=== PATIENT | male | born 1955 | race Hispanic/Latino ===

== ENCOUNTER 2019-04-19 19:44 | Observation (INO) | payer BC | END 2019-04-20 19:05 | disposition home or self-care (01) | LOC: EDH 19:44 → EDHIP 04-20 00:30 → 2AH 04-20 01:58 ==

== ENCOUNTER 2019-05-14 08:49 | Day surgery (SDC) | payer BC ==
[~2019-05-14] VITALS: Ht 170.2 cm; Wt 113.4 kg
[~2019-05-14 08:49] MED LIST: ASPI-1197 PO; ATOR20TA65 PO; CARV12.511 PO; FURO20TA4 PO; GLYB2.5 PO; ISOS60TA4 PO; LISI2.5T2 PO; METF-444 PO; NITR0.4T50 SL; SODIUM CHLORIDE 0.9% 1000ML 1,000 ML IV ONE
[2019-05-14 10:42] VITALS: BP 116/73
[2019-05-14 12:20] VITALS: BP 102/66
[2019-05-14 12:25] VITALS: BP 111/63
[2019-05-14 12:30] VITALS: BP 111/66
[2019-05-14 12:35] VITALS: BP 115/68
== END 2019-05-14 12:47 | disposition home or self-care (01) ==
LOC: ENDO 08:49 → DAH 08:49 → ENDO 12:47
PROVIDERS: ATTEND Internal Medicine
DX: K57.30 Diverticulosis of large intestine without perforation or abscess without bleeding (principal); Z86.010 Personal history of colon polyps; Z83.71 Family history of colonic polyps; Z79.84 Long term (current) use of oral hypoglycemic drugs; Z79.899 Other long term (current) drug therapy; Z79.82 Long term (current) use of aspirin; I10 Essential (primary) hypertension; E78.5 Hyperlipidemia, unspecified; E11.9 Type 2 diabetes mellitus without complications; I25.810 Atherosclerosis of coronary artery bypass graft(s) without angina pectoris; Z53.8 Procedure and treatment not carried out for other reasons
CPT/HCPCS: 82948 ×2; A4215; A4221; A4222; A4223; A4606; A4663 ×2; J7030

== ENCOUNTER → 2019-05-15 | Outpatient (CLI) | payer BC ==
[~2019-05-15] MED LIST changes: -SODIUM CHLORIDE 0.9% 1000ML 1,000 ML IV ONE
== END | disposition home or self-care (01) ==
LOC: RAH 08:29
PROVIDERS: ATTEND Internal Medicine Cardiovascular Disease
DX: I08.0 Rheumatic disorders of both mitral and aortic valves (principal); I11.9 Hypertensive heart disease without heart failure; I25.5 Ischemic cardiomyopathy
CPT/HCPCS: 93306

== ENCOUNTER → 2020-12-25 | Outpatient (CLI) | payer BC ==
[~2020-12-25] MED LIST changes: -GLYB2.5 PO; +GLYB2.5T6 PO; -ISOS60TA4 PO; +ISOS60TA77 PO
== END | disposition home or self-care (01) ==
LOC: SHCH 10:20
PROVIDERS: ATTEND Internal Medicine Cardiovascular Disease
DX: I25.5 Ischemic cardiomyopathy (principal)
CPT/HCPCS: 93306; 93356

== ENCOUNTER 2021-02-08 20:35 | Emergency (ER) | payer BC ==
[~2021-02-08] VITALS: Ht 170.2 cm; Wt 105.2 kg
[2021-02-08 20:37] VITALS: BP 106/65
[2021-02-08] MEDS ORDERED: METOCLOPRAMIDE 5 MG TABLET PO SCH (23:15)
[2021-02-08] MEDS ORDERED: PROMETHAZINE HCL 25 MG/ML 1ML AMPULE IM ONE (23:30)
[2021-02-08 23:36] LABS: BASOPHILS % (AUTO) 0.3 % (0.0-5.0); EOSINOPHILS % (AUTO) 1.3 % (0.0-8.0); HEMATOCRIT 42.4 % (42-54); LYMPHOCYTES % (AUTO) 16.3 % (21.0-51.0); MEAN CORPUSCULAR HEMOGLOBIN 31.6 pg (27.0-33.0); MEAN CORPUSCULAR HGB CONC 33.7 g/dL (32.0-36.0); MEAN CORPUSCULAR VOLUME 93.6 fL (79-99); MONOCYTES % (AUTO) 6.4 % (3.0-13.0); NEUTROPHILS % (AUTO) 75.6 % (40.0-77.0); PLATELET COUNT (AUTO) 158 K/uL (130-400); RED BLOOD CELL COUNT(AUTO) 4.53 MIL/uL (4.50-6.20); RED CELL DISTRIBUTION WIDTH 13.4 % (11.0-15.5)
[2021-02-08 23:43] LABS: APPEARANCE,URINE Clear (CLEAR); BILIRUBIN,URINE Moderate (NEGATIVE); COLOR,URINE Dark Yellow (YELLOW); GLUCOSE, URINE (UA) Negative (NEGATIVE); KETONES,URINE Trace mg/dL (NEGATIVE); LEUKOCYTE ESTERASE ,URINE Trace (NEGATIVE); NITRATE,URINE Negative (NEGATIVE); OCCULT BLOOD,URINE Negative (NEGATIVE); PROTEIN,URINE POS 1+ mg/dL (NEGATIVE)
[2021-02-08 23:45] LABS: CREATININE 0.9 mg/dL (0.5-1.5)
[2021-02-08 23:54] LABS: BACTERIA,URINE Few /HPF (None Seen); MUCUS,URINE Moderate LPF (None Seen); RBC,URINE 0-1 /HPF (0-1); SQUAMOUS EPITHELIAL CELL,UR 0-2 /HPF (0-2); WBC,URINE 0-1 /HPF (0-1)
[2021-02-08 23:59] LABS: B-TYPE NATRIURETIC PEPTIDE 32 pg/mL (0-100)
[2021-02-09 00:03] VITALS: BP 106/65
[2021-02-09 00:03] LABS: ALBUMIN 3.8 g/dL (3.5-5.0); BILIRUBIN,TOTAL 1.2 mg/dL (0.2-1.0); TOTAL PROTEIN, SERUM 7.4 g/dL (6.0-8.3)
== END 2021-02-09 00:08 | disposition home or self-care (01) ==
LOC: EDH 20:35
DX: R11.10 Vomiting, unspecified (principal); I11.0 Hypertensive heart disease with heart failure; I50.9 Heart failure, unspecified; E11.9 Type 2 diabetes mellitus without complications; E78.00 Pure hypercholesterolemia, unspecified; I21.9 Acute myocardial infarction, unspecified; K21.9 Gastro-esophageal reflux disease without esophagitis; I25.10 Atherosclerotic heart disease of native coronary artery without angina pectoris; I25.2 Old myocardial infarction; Z79.82 Long term (current) use of aspirin; Z79.84 Long term (current) use of oral hypoglycemic drugs; Z95.1 Presence of aortocoronary bypass graft; Z79.899 Other long term (current) drug therapy; Z90.49 Acquired absence of other specified parts of digestive tract
CPT/HCPCS: 36415; 80053; 81001; 82550; 83690; 83874; 83880; 84484; 85025; 93005; 96372; 99284; J2550

== ENCOUNTER 2021-03-02 06:00 | Day surgery (SDC) | payer BC ==
[~2021-03-02] VITALS: Ht 170.2 cm; Wt 108.9 kg
[~2021-03-02 06:00] MED LIST changes: -GLYB2.5T6 PO; -LISI2.5T2 PO; -METF-444 PO; -NITR0.4T50 SL; +PRAS10TA9 PO; +RANO10003 PO; +SACU1TAB PO; +SEMA1PEN3 SQ
[2021-03-02] MEDS ORDERED: 0.9%NACL 1000ML 1,000 ML IV ONE (06:23)
[2021-03-02 07:09] VITALS: BP 106/64
[2021-03-02] MEDS ORDERED: PROPOFOL 10 MG/ML 20ML VIAL IV ONE (08:19)
[2021-03-02 08:35] VITALS: BP_SYST 110; BP_SYST 120; BP_DIAS 66
[2021-03-02 08:40] VITALS: BP 122/69
[2021-03-02 08:50] VITALS: BP 128/67
[2021-03-02 08:55] VITALS: BP 124/70
[2021-03-02 09:10] VITALS: BP 128/74
== END 2021-03-02 09:20 | disposition home or self-care (01) ==
LOC: ENDO 06:00 → DAH 06:00 → EDSTATUS 07:00 → ENDO 09:20
PROVIDERS: ATTEND Internal Medicine Gastroenterology
DX: Z12.11 Encounter for screening for malignant neoplasm of colon (principal); Z20.822 Contact with and (suspected) exposure to COVID-19; K63.5 Polyp of colon; K64.8 Other hemorrhoids; K57.30 Diverticulosis of large intestine without perforation or abscess without bleeding; I10 Essential (primary) hypertension; E78.5 Hyperlipidemia, unspecified; I25.810 Atherosclerosis of coronary artery bypass graft(s) without angina pectoris; E11.9 Type 2 diabetes mellitus without complications; Z90.49 Acquired absence of other specified parts of digestive tract; Z98.890 Other specified postprocedural states; Z95.5 Presence of coronary angioplasty implant and graft; Z86.010 Personal history of colon polyps; Z80.0 Family history of malignant neoplasm of digestive organs; Z83.71 Family history of colonic polyps
CPT/HCPCS: 45380; 45385; 82948 ×2; 87635; A4215; A4221; A4222; A4223; A4606; A4620; A4657 ×2; A4663; C9803; J2704; J7030

== ENCOUNTER → 2023-09-22 | Outpatient (CLI) | payer OTHER ==
[2023-09-22] MEDS: REGADENOSON 0.4 MG/5 ML PF SYG IVP ONE (15:48)
== END | disposition home or self-care (01) ==
LOC: SHCH 09-18 09:27
PROVIDERS: ATTEND Internal Medicine Cardiovascular Disease
DX: I25.119 Atherosclerotic heart disease of native coronary artery with unspecified angina pectoris (principal); R94.39 Abnormal result of other cardiovascular function study; I51.7 Cardiomegaly; Z95.1 Presence of aortocoronary bypass graft
CPT/HCPCS: 78452; 96374; 93017; J2785; A9500 ×2

== ENCOUNTER 2025-06-30 08:18 | Inpatient (IN) | payer OTHER ==
[~2025-06-30] VITALS: Ht 167.6 cm; Wt 98.2 kg
[2025-06-30 08:59] LABS: IMMATURE GRANULOCYTE ABSOLUTE 0.07 K/uL (0-1); NUCLEATED RED BLOOD CELLS 0.0 % (0.0-0.19); PLATELET COUNT (AUTO) 161 K/uL (130-400); RED BLOOD CELL COUNT(AUTO) 5.55 MIL/uL (4.50-6.20); RED CELL DISTRIBUTION WIDTH 13.3 % (11.0-15.5); WHITE BLOOD COUNT (AUTO) 12.6 K/uL (4.8-10.8)
[2025-06-30] MEDS: 0.9% NACL 500ML IV.SOLN 500 ML IV ONE (09:03)
[2025-06-30 09:16] LABS: ASPARTATE AMINOTRANSFERASE 11 U/L (10-37); CREATINE KINASE, TOTAL 56 U/L (21-232); CREATININE 1.9 mg/dL (0.5-1.3); GLOMERULAR FILTR. RATE CALC 38 mL/min (>90); GLUCOSE,RANDOM 148 mg/dL (70-105); SODIUM SERUM 133 mmol/L (136-145); TOTAL PROTEIN, SERUM 7.5 g/dL (6.0-8.3); UREA NITROGEN, BLOOD 29 mg/dL (7-18)
--- NOTE | 2025-06-30 10:44 | EKG ---
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
--- NOTE | 2025-06-30 11:00 | HMCIMG ---
EXAM: CT Abdomen and Pelvis Without IV contrast CLINICAL HISTORY: pain and vomiting TECHNIQUE: Axial computed tomography images of the abdomen and pelvis without intravenous contrast. CONTRAST: No IV contrast. COMPARISON: None provided. FINDINGS: LUNG BASES: The lung bases appear clear. No pleural effusions are seen. LIVER: Unremarkable. GALLBLADDER AND BILE DUCTS: Status post cholecystectomy. No biliary ductal dilatation is evident. PANCREAS: Unremarkable. SPLEEN: Unremarkable. ADRENAL GLANDS: Unremarkable. KIDNEYS, URETERS, AND BLADDER: The kidneys appear within normal limits. There is no hydronephrosis or hydroureter. No urinary calculi are seen. STOMACH AND BOWEL: Mildly prominent fluid-filled loops of small and large bowel that remain normal in caliber by size criteria likely reflecting acute enterocolitis. No pneumatosis intestinalis, pneumoperitoneum, portal venous gas. APPENDIX: Appendix is normal. PERITONEUM: No free fluid. No free air. Umbilical hernia with herniation of omentum, defect size 1.1 cm. LYMPH NODES: No lymphadenopathy is evident. REPRODUCTIVE: The prostate is mildly enlarged in size, measuring 30 cc. VASCULATURE: No evidence of abdominal aortic aneurysm. Atherosclerotic changes in the aorta. BONES: Mild degenerative changes in the spine. IMPRESSION: 1. Mildly prominent fluid-filled loops of small and large bowel, likely reflecting acute enterocolitis. 2. No evidence of bowel obstruction, perforation, or other acute abdominal findings. /[place]
--- NOTE | 2025-06-30 11:26 | ERN ---
ED Note History of Present Illness Stated Complaint: N/V/D. LEFT ARM PAIN Chief Complaint: Nausea,Vomiting,Diarrhea Time Seen by MD: 08:21 Dictation: [age] year old male presenting to the emergency department with nausea vomiting and diarrhea nonbloody or the past few days and feeling weak some episodes in the past. No chest pain or shortness of breath. Allergies: Coded Allergies: No Known Drug Allergies (Unverified Allergy, 04/10/12) Home Meds Reported Medications Ranolazine (Ranexa) 1,000 Mg Tab.er.12h, 1000 MG PO BID, TAB 03/01/21 Semaglutide (Ozempic) 1 Mg/0.75 Ml Pen.injctr, 0.25 MG SQ QWEEK TAKE ON Monday03/01/21 Sacubitril/Valsartan (Entresto 24 mg-26 mg Tablet) 1 Each Tablet, 1 EACH PO BID, TAB 03/01/21 Prasugrel HCl (Prasugrel HCl) 10 Mg Tablet, 10 MG PO AM, TAB 03/01/21 Isosorbide Mononitrate (Isosorbide Mononitrate ER) 60 Mg Tab.er.24h, 60 MG PO PM, TAB take 1/ tab 03/01/21 Isosorbide Mononitrate (Isosorbide Mononitrate ER) 60 Mg Tab.er.24h, 60 MG PO AM, TAB 04/20/19 Atorvastatin Calcium (Atorvastatin Calcium) 20 Mg Tablet, 20 MG PO HS, TAB 04/20/19 Aspirin (Aspirin) 81 Mg Tab.chew, 81 MG PO DAILY, TAB.CHEW 04/20/19 Carvedilol (Carvedilol) 12.5 Mg Tablet, 3.125 MG PO BID, TAB 04/20/19 Furosemide (Furosemide) 20 Mg Tablet, 20 MG PO DAILY, TAB 04/20/19 Past Medical History Past Medical History: CAD, CHF, Diabetes-Type II, GERD, High Cholesterol, Hypertension, [place] Surgical History: Cholecystectomy, CABG Surgical History Other: Colonoscopy Review of System Dictation Constitutional: Negative for fever,chills, and weight loss Eyes: Negative for injury, pain,redness, and discharge ENT: Negative for injury,pain or swelling Cardiovascular: Negative for chest pain, palpitations, and edema Respiratory: Negative for shortness of breath, cough, and wheezing, Abdomen/GI: Per HPI : Negative for injury, bleeding and discharge MS/Extremity: Negative for injury and deformity Skin: Negative for rash, and discoloration Neuro: Per H Initial Vital Sign VS Vital Signs Date Time Temp Pulse Resp B/P (MAP) Pulse Ox O2 Delivery O2 Flow Rate FiO2 06/30/25 08:19 97.7 88 16 107/78 100 Room Air 0 06/30/25 08:50 21 Physical Exam Dictation General: awake, alert, appears weak Head/Face: Normocephalic, atraumatic Eyes: PERRL, EOMI, vision at baseline ENT: oral cavity clear, TMs clear, no signs of infection Neck: Trachea midline, supple, no nuchal rigidity Cardiovascular: RRR, normal S1/S2, No MRGs, no JVD Respiratory: CTAB, no respiratory distress, No rales or wheezes Abdomen: Soft, non-tender, non-distended, normal bowel sounds, no guarding or rebound. Skin: Warm, dry, normal turgor, no rash MS/Extremity: Pulses equal, no cyanosis, neurovascular intact, FROM Neuro: COAx4, GCS 15, strength 5/5, CN 2-12 intact, normal cerebellar exam, nor mal gait, Psych: Normal behavior, mood, and affect normal Results (Laboratory/Radiology) Laboratory/Radiology Laboratory Tests Test 06/30/25 08:49 White Blood Count 12.6 K/uL (4.8-10.8) H Red Blood Count 5.55 MIL/uL (4.50-6.20) Hemoglobin 17.5 g/dL (14.0-18.0) Hematocrit 50.5 % (42-54) Mean Corpuscular Volume 91.0 fL (79-99) Mean Corpuscular Hemoglobin 31.5 pg (27.0-33.0) Mean Corpuscular Hemoglobin Concent 34.7 g/dL (32.0-36.0) Red Cell Distribution Width 13.3 % (11.0-15.5) Platelet Count 161 K/uL (130-400) Mean Platelet Volume 12.2 fL (7.5-10.5) H Immature Granulocyte % (Auto) 0.6 % (0-1) Neutrophils (%) (Auto) 76.6 % (40.0-77.0) Lymphocytes (%) (Auto) 10.4 % (21.0-51.0) L Monocytes (%) (Auto) 9.8 % (3.0-13.0) Eosinophils (%) (Auto) 2.4 % (0.0-8.0) Basophils (%) (Auto) 0.2 % (0.0-5.0) Neutrophils # (Auto) 9.7 K/uL (1.8-7.7) H Lymphocytes # (Auto) 1.3 K/uL (1.0-4.8) Monocytes # (Auto) 1.2 K/uL (0.1-1.0) H Eosinophils # (Auto) 0.30 K/uL (0.00-0.70) Basophils # (Auto) 0.03 K/uL (0.00-0.20) Absolute Immature Granulocyte (auto 0.07 K/uL (0-1) Nucleated Red Blood Cells 0.0 % (0.0-0.19) Sodium Level 133 mmol/L (136-145) L Potassium Level 3.7 mmol/L (3.5-5.1) Chloride Level 97 mmol/L (101-111) L Carbon Dioxide Level 28 mmol/L (21-32) Blood Urea Nitrogen 29 mg/dL (7-18) H Creatinine 1.9 mg/dL (0.5-1.3) H Glomerular Filtration Rate Calc 38 mL/min (>90) Random Glucose 148 mg/dL (70-105) H Total Calcium 9.2 mg/dL (8.5-10.1) Total Bilirubin 0.5 mg/dL (0.2-1.0) Direct Bilirubin 0.2 mg/dL (0.0-0.3) Aspartate Amino Transf (AST/SGOT) 11 U/L (10-37) Alanine Aminotransferase (ALT/SGPT) 19 U/L (12-78) Alkaline Phosphatase 103 U/L (50-136) Ammonia < 10 umol/L (11-32) L Total Creatine Kinase 56 U/L (21-232) # Troponin I High Sensitivity 23 ng/L (4-75) Total Protein 7.5 g/dL (6.0-8.3) Albumin 3.7 g/dL (3.5-5.0) Lipase 19 U/L (16-77) Labs Reviewed?: Yes EKG Comment: Heart rate 74 normal sinus rhythm normal interval no STEMI ED Course ED Course Orders Procedure Category Date Status Time 12 Lead Ekg Tracing- EKG 06/30/25 Complete Technical 08:47 Basic Metabolic Panel LAB 06/30/25 Complete 08:47 Cbc With Differential LAB 06/30/25 Complete 08:47 Creatine Kinase, Total LAB 06/30/25 Complete 08:47 Hepatic Function Panel LAB 06/30/25 Complete 08:47 Ammonia LAB 06/30/25 Complete 08:47 Troponin I High LAB 06/30/25 Complete Sensitivity 08:47 Lipase LAB 06/30/25 Complete 08:47 Ct Abd/Pel Wo Con CT 06/30/25 Resulted Renal/Appy 08:47 Ondansetron 4mg Inj PHA 06/30/25 Complete (Zofran 4mg Inj) 08:47 Morphine 4mg Syg PHA 06/30/25 Complete (Morphine 4mg Syg) 08:47 0.9% Nacl 500ml PHA 06/30/25 Complete Iv.Soln (Ns 500ml 09:00 Current Medications Medications (Trade) Dose Ordered Sig/Carroll Route PRN Reason Start Time Stop Time Status Last Admin Dose Admin Morphine Sulfate (morPHINE 4MG SYG) 4 mg ONCE STAT IVP 06/30/25 08:47 06/30/25 08:49 DC 06/30/25 09:02 Ondansetron HCl (zoFRAN 4MG INJ) 4 mg ONCE STAT IVP 06/30/25 08:47 06/30/25 08:49 DC 06/30/25 09:02 Sodium Chloride 500 ml @ 0 mls/hr ONCE ONCE IV 06/30/25 09:00 06/30/25 09:01 DC 06/30/25 09:03 Vital Signs Date Time Temp Pulse Resp B/P (MAP) Pulse Ox O2 Delivery O2 Flow Rate FiO2 06/30/25 10:34 76 16 103/73 98 Room Air* 0 06/30/25 08:50 85 16 114/75 100 Room Air* 0 21 06/30/25 08:19 97.7 88 16 107/78 100 Room Air 0 Medical Decision Making MDM MDM: Differential diagnosis: Rationale: Tests considered and ordered secondary to shared decision making include: labs, ECG and radiology Previous outside records reviewed: Old ER visits. Risk of complication and/or morbidity or mortality of patient management: None Medications-Per medication reconciliation Need for hospitalization: Patient does meet criteria for hospitalization. Need for emergency major/minor surgery: No There are no social concerns with this patient. Prescription drug management Prescriptions will include symptomatic care Patient's prior external medical records from other ER visits were reviewed by me as indicated. Prior testing and results from previous visits were reviewed. Prior tests were taken into account with medical decision making and resource utilization, independent historian/historians were used to obtain complete medical history. I independently interpreted the test that were performed, results were reviewed by me and considered findings on radiology if ordered. Medical management and examination interpretation discussions were had by me with other qualified healthcare professionals as indicated for the patient's care. 69-year-old male with acute nausea vomiting and diarrhea acute intravascular depletion with renal insufficiency, creatinine of 1.9, limiting further care and evaluation DX & DISP Disposition: Inpatient Departure Impression: Primary Impression: Acute dehydration Additional Impression: Acute renal insufficiency Condition: Stable Referrals: DAE ERWIN MD (PCP) KELIN HOUSER MD Jun 30, 2025 11:25
[2025-06-30 13:28] LABS: INR 1.14 (0.85-1.15)
[2025-06-30 13:33] LABS: LACTATE DEHYDROGENASE 166.0 U/L (81-234)
[2025-06-30] MEDS: 0.9%NACL 1000ML 1,000 ML IV SCH (13:45)
[2025-06-30] MEDS ORDERED: GLUCAGON 1MG KIT 1 MG ML IM PRN (14:00)
[2025-06-30] MEDS ORDERED: DEXTROSE 50%-WATER 50 ML DISP.SYRIN IV PRN (14:00)
--- NOTE | 2025-06-30 14:10 | HP ---
[facility] HISTORY AND PHYSICAL Date of Service: Jun 30, 2025 Time of Service: 14:04 HISTORY OF PRESENT ILLNESS: Date of service: 06/30/2025, patient was seen in ER room 19 This is a 69-year-old male with underlying history of coronary artery disease with prior history of coronary artery bypass grafting in 2014, previous history of [place] in 2019 status post PCI, hyperlipidemia, type 2 diabetes mellitus, history of FRANC, who presented to the ER for further evaluation of nausea, vomiting, and nonresolving multiple episodes of nonbloody diarrhea ongoing since , five days ago. Patient's is present at bedside and she reports that jose enrique singh has been having intractable nausea and vomiting and multiple episodes of diarrhea. He has been using the restroom every 10-20 minutes in the diarrhea has been nonresolving. Denies any antibiotic use as outpatient. Denies significant abdominal pain. There is no blood in the stool either. Patient has been feeling dizzy since the symptoms started. He is supposed to be on v alsartan 40 mg daily for blood pressure control as outpatient but he has been holding the medication over the last two days due to dizziness. Denies any syncopal falls. On presentation to the hospital, patient was noted to be afebrile with T-max of 97.7 F, heart rate of 88 and blood pressure of 107/78. [place] [address] with hemoglobin of 17.5, platelet count of 006136. BMP showed sodium of 133, potassium 3.7, chloride of 97, BUN of 29, creatinine 1.9, blood glucose of 148. Patient underwent further evaluation with noncontrast CT abdomen pelvis which showed mildly prominent fluid-filled loops of small and large bowel reflecting acute enterocolitis. Patient will be admitted to hospitalist service for further management of s ignificant dehydration, acute kidney injury, nonresolving persistent infectious enterocolitis. Patient will receive IV fluids, IV antibiotics. Consultation with Nephrology and Infectious Disease will be requested this admission. Patient will undergo further infectious workup of the diarrhea. We will see how patient progresses in the next 48-72 hours. REVIEW OF SYSTEMS CONSTITUTIONAL: Denies fevers, chills, or night sweats. No unintentional weight loss reported. NEUROLOGICAL: Denies headache, amaurosis fugax, motor weakness, sensory deficit, vertigo/spinning sensation, gait abnormalities, or tremors. ENT: No hearing loss, otalgia, otorrhea, rhinitis, rhinorrhea, hoarseness, or sore throat. CARDIOVASCULAR: Denies any exertional angina, dyspnea on exertion, orthopnea, paroxysmal nocturnal dyspnea, palpitations, life-threatening arrhythmias, claudication. PULMONARY: Denies any shortness of breath, cough, phlegm/sputum, hemoptysis, pleuritic chest pain. SLEEP: Denies morning headaches, daytime somnolence or napping. Denies difficulty falling asleep, staying asleep, waking from sleep. Denies knowledge of snoring. GASTROINTESTINAL: nausea, vomiting, persistent non resolving diarrhea x 5 days GENITOURINARY: Denies frequency, urgency, nocturia, hematuria or incontinence (Storage/Irritative symptoms.) Low urinary stream, straining to void, urinary intermittency or hesitancy, splitting of the voiding stream, terminal dribbling. ENDOCRINOLOGIC: Denies polyuria, polydipsia, polyphagia or heat/cold intolerances. HEMATOLOGIC: Denies thrombophilia/previous clots, or coagulopathy/bleeding disorders. ONCOLOGIC: Denies personal history of malignancy. DERMATOLOGIC: Denies rashes or pruritus. PSYCHIATRIC: Denies any suicidal or homicidal ideation. Denies hallucinations. PAST MEDICAL HISTORY: Hypertension, type 2 diabetes mellitus, obstructive sleep apnea, obesity, hyperlipidemia, history of [place] in 2019, history of multivessel coronary artery disease PAST SURGICAL HISTORY: Coronary artery bypass grafting in 2013, history of PCI with cardiac stent in 2019, left shoulder surgery, cholecystectomy PAST SOCIAL HISTORY: Patient denies active smoking or alcohol consumption, resides with at home FAMILY HISTORY: Denies pertinent family history Allergies: No known drug allergies Home medications: Patient reports being on valsartan 40 mg daily, Ranexa 1000 mg twice daily, prn nitroglycerin, tadalafil Coded Allergies: No Known Drug Allergies (Unverified Allergy, 04/10/12) PHYSICAL EXAM GENERAL APPEARANCE: The patient is awake, alert, and oriented, in no acute cardiopulmonary distress. NEUROLOGICAL: Cranial nerves II-XII grossly intact. Motor is 5/5 in bilateral upper and lower extremities proximal to distal. No sensory deficits. HEENT: Face is symmetric. Pupils are equal and reactive. Extraocular movements are intact. NECK: Supple. No JVD. No thyromegaly. No submental, submandibular, pre-/p ostauricular, occipital or supraclavicular lymphadenopathy. CHEST: Normal chest expansion. No Telemetry. LUNGS: Absence of any rales, rhonchi or any wheezing. CARDIOVASCULAR: Regular. S1 and S2 normal. No appreciable rubs, murmurs or gallops. ABDOMEN: Soft, nontender, and nondistended. There is no rebound, voluntary guarding, or rigidity. : Deferred. No Andrews. EXTREMITIES: Non-edematous and not cyanotic. No clubbing. Good capillary refill. SKIN: No skin breakdown. Vital Sign (Last 24 Hours) 06/30/25 06/30/25 08:19 10:34 Temp 97.7 Pulse 76 Resp 16 B/P (MAP) 103/73 Pulse Ox 98 O2 Delivery Room Air* O2 Flow Rate 0 FiO2 21 LABS: Laboratory: Test 06/30/25 12:53 06/30/25 08:49 Range/Units Erythrocyte Sedimentation Rate 8 0-20 MM/HR Prothrombin Time 11.9 H 9.6-11.6 SEC Prothromb Time International Ratio 1.14 0.85-1.15 Activated Partial Thromboplast Time 25.3 L 26.3-35.5 SEC Hemoglobin A1c 5.4 4.0-6.0 % Estimated Average Glucose (eAG) 108 70-126 mg/dL Lactic Acid Level 1.6 0.8-2.5 mmol/L Lactate Dehydrogenase 166 81-234 U/L C-Reactive Protein, Quantitative 4.10 H 0.5-3.0 mg/L B-Type Natriuretic Peptide 29 0-100 pg/mL Procalcitonin 0.05 0.05-0.5 ng/mL Thyroid Stimulating Hormone (TSH) 1.39 # 0.36-3.74 uIU/mL White Blood Count 12.6 H 4.8-10.8 K/uL Red Blood Count 5.55 4.50-6.20 MIL/uL Hemoglobin 17.5 14.0-18.0 g/dL Hematocrit 50.5 42-54 % Mean Corpuscular Volume 91.0 79-99 fL Mean Corpuscular Hemoglobin 31.5 27.0-33.0 pg Mean Corpuscular Hemoglobin Concent 34.7 32.0-36.0 g/dL Red Cell Distribution Width 13.3 11.0-15.5 % Platelet Count 161 130-400 K/uL Mean Platelet Volume 12.2 H 7.5-10.5 fL Immature Granulocyte % (Auto) 0.6 0-1 % Neutrophils (%) (Auto) 76.6 40.0-77.0 % Lymphocytes (%) (Auto) 10.4 L 21.0-51.0 % Monocytes (%) (Auto) 9.8 3.0-13.0 % Eosinophils (%) (Auto) 2.4 0.0-8.0 % Basophils (%) (Auto) 0.2 0.0-5.0 % Neutrophils # (Auto) 9.7 H 1.8-7.7 K/uL Lymphocytes # (Auto) 1.3 1.0-4.8 K/uL Monocytes # (Auto) 1.2 H 0.1-1.0 K/uL Eosinophils # (Auto) 0.30 0.00-0.70 K/uL Basophils # (Auto) 0.03 0.00-0.20 K/uL Absolute Immature Granulocyte (auto 0.07 0-1 K/uL Nucleated Red Blood Cells 0.0 0.0-0.19 % Sodium Level 133 L 136-145 mmol/L Potassium Level 3.7 3.5-5.1 mmol/L Chloride Level 97 L 101-111 mmol/L Carbon Dioxide Level 28 21-32 mmol/L Blood Urea Nitrogen 29 H 7-18 mg/dL Creatinine 1.9 H 0.5-1.3 mg/dL Glomerular Filtration Rate Calc 38 >90 mL/min Random Glucose 148 H 70-105 mg/dL Total Calcium 9.2 8.5-10.1 mg/dL Total Bilirubin 0.5 0.2-1.0 mg/dL Direct Bilirubin 0.2 0.0-0.3 mg/dL Aspartate Amino Transf (AST/SGOT) 11 10-37 U/L Alanine Aminotransferase (ALT/SGPT) 19 12-78 U/L Alkaline Phosphatase 103 50-136 U/L Ammonia < 10 L 11-32 umol/L Total Creatine Kinase 56 # 21-232 U/L Troponin I High Sensitivity 23 4-75 ng/L Total Protein 7.5 6.0-8.3 g/dL Albumin 3.7 3.5-5.0 g/dL Lipase 19 16-77 U/L Current Medications Medications (Trade) Dose Ordered Sig/Carroll Route PRN Reason Start Time Stop Time Status Last Admin Dose Admin Acetaminophen (TYLenol 325MG TAB) 650 mg Q6H PRN PO MILD PAIN (1-3) 06/30/25 13:00 07/30/25 12:59 Ceftriaxone Sodium (ROCEphine 1G INJ) 1 gm Q12H IVPB 06/30/25 13:00 07/10/25 12:59 06/30/25 13:45 1 GM Dextrose (D50w) 50 ml AD PRN IV HYPOGLYCEMIA PROTOCOL 06/30/25 14:00 07/30/25 13:59 Glucagon (Glucagon 1mg Kit) 1 mg AD PRN IM HYPOGLYCEMIA PROTOCOL 06/30/25 14:00 07/30/25 13:59 Insulin Human Regular (humuLIN R 100 UNIT/ML 3ML) INSULIN SLIDING SCAL... ACHS SQ 06/30/25 16:30 07/30/25 16:29 Metronidazole/ Sodium Chloride 100 ml @ 100 mls/hr Q8H IVPB 06/30/25 22:30 07/10/25 13:59 Metronidazole/ Sodium Chloride 100 ml @ 100 mls/hr TID IVPB 06/30/25 14:00 06/30/25 14:02 DC 06/30/25 13:45 100 MLS/HR Morphine Sulfate (morPHINE 4MG SYG) 4 mg ONCE STAT IVP 06/30/25 08:47 06/30/25 08:49 DC 06/30/25 09:02 4 MG Ondansetron HCl (zoFRAN 4MG INJ) 4 mg ONCE STAT IVP 06/30/25 08:47 06/30/25 08:49 DC 06/30/25 09:02 4 MG Ondansetron HCl (zoFRAN 4MG INJ) 4 mg Q6H PRN IVP NAUSEA/VOMITING 06/30/25 13:00 07/30/25 12:59 Pantoprazole Sodium (PROTonix 40MG INJ) 40 mg Q24H IVP 06/30/25 13:00 07/30/25 12:59 06/30/25 13:45 40 MG Sodium Chloride 1,000 ml @ 75 mls/hr [id number] IV 06/30/25 13:00 07/30/25 12:59 06/30/25 13:45 75 MLS/HR DIAGNOSTICS / RADIOLOGY: SERVICE [id number] REASON: pain and vomiting ORDERING PHYSICIAN: KELIN HOUSER MD PROCEDURE: ABD PELVWO - CT ABD/PEL WO CON RENAL/APPY EXAM: CT Abdomen and Pelvis Without IV contrast CLINICAL HISTORY: pain and vomiting TECHNIQUE: Axial computed tomography images of the abdomen and pelvis without intravenous contrast. CONTRAST: No IV contrast. COMPARISON: None provided. FINDINGS: LUNG BASES: The lung bases appear clear. No pleural effusions are seen. LIVER: Unremarkable. GALLBLADDER AND BILE DUCTS: Status post cholecystectomy. No biliary ductal dilatation is evident. PANCREAS: Unremarkable. SPLEEN: Unremarkable. ADRENAL GLANDS: Unremarkable. KIDNEYS, URETERS, AND BLADDER: The kidneys appear within normal limits. There is no hydronephrosis or hydroureter. No urinary calculi are seen. STOMACH AND BOWEL: Mildly prominent fluid-filled loops of small and large bowel that remain normal in caliber by size criteria likely reflecting acute enterocolitis. No pneumatosis intestinalis, pneumoperitoneum, portal venous gas. APPENDIX: Appendix is normal. PERITONEUM: No free fluid. No free air. Umbilical hernia with herniation of omentum, defect size 1.1 cm. LYMPH NODES: No lymphadenopathy is evident. REPRODUCTIVE: The prostate is mildly enlarged in size, measuring 30 cc. VASCULATURE: No evidence of abdominal aortic aneurysm. Atherosclerotic changes in the aorta. BONES: Mild degenerative changes in the spine. IMPRESSION: 1. Mildly prominent fluid-filled loops of small and large bowel, likely reflecting acute enterocolitis. 2. No evidence of bowel obstruction, perforation, or other acute abdominal findings. /[place] DICTATED BY: GODFREY MARTINEZ Jr., MD DATE: 06/30/25 1200 ELECTRONICALLY SIGNED BY: GODFREY MARTINEZ Jr., MD DATE: 06/30/251199 ASSESSMENT: Infectious enterocolitis, POA [id number] dehydration, POA Acute kidney injury, POA Hypovolemic hyponatremia, POA Orthostasis, POA Underlying history of hypertension, POA Hyperlipidemia, POA History of coronary artery disease with prior history of CABG and PCI, POA Prior history of [place] in 2019, POA History of CHF, POA Obstructive sleep apnea, POA Rule out UTI, POA PLAN: Patient will be admitted to cardiac telemetry floor Patient appears very dehydrated and would pressure has been running in the ER in the 80s-90s systolic We will start patient on IV hydration with NS at 100 mL/hour, we will check a lactic acid We will follow up infectious workup including blood cultures, we will check CRP, procalcitonin, stool studies will be obtained including GI PCR panel, stool cultures, C diff panel as well Will start patient on renally dosed IV Zosyn Consultation with Infectious Disease and Nephrology will be requested We will continue to hold valsartan due to soft blood pressure as well as TATE, we will obtain a renal ultrasound, we will send further workup of TATE including FENA testing, obtain urinalysis to rule out urinary tract infection We will see how patient progresses in the next 48-72 hours, we will obtain a 2D echocardiogram to assess LVEF Patient will be placed on fall precautions, we will start patient on a lactose- free diet as well Home medications were reconciled and updated once available We will avoid NSAIDs, IV contrast All labs will be repeated in the morning If diarrhea is non resolving in the next 48-72 hours, will obtain GI evaluation as well Plan of care was discussed with patient and at bedside Prognosis: Guarded Han Santoro MD Advanced Care Planning: Which of the following were discussed: Hospice care: Yes __ No _X_ Therapeutic options: Yes _X_ No __ Advance directives: Yes _X_ No __ Other discussions: Discussed with who?: Patient Voluntary nature of this service was explained to the patient? Yes _x_ No __ Amount of time spent: 20 minutes HAN SANTORO MD Jun 30, 2025 14:09
--- NOTE | 2025-06-30 14:19 | NUR ---
URINE AND STOOL SAMPLES SENT TO LAB
--- NOTE | 2025-06-30 14:20 | NUR ---
DCP:HOME Pt currently lives at home with his [place] Mchugh [phone]. denies that pt has any DME, home health, or provider services. Pt is able to complete ADLs independently. PCP is Dr. Gregory Smith and uses [facility] for any RX needs. AT [place] pt will want to go home and family can assist with transportation.
[2025-06-30 14:24] LABS: APPEARANCE,URINE CLOUDY (CLEAR); GLUCOSE, URINE (UA) NEGATIVE (NEGATIVE); LEUKOCYTE ESTERASE ,URINE 500 Leu/uL (NEGATIVE); NITRATE,URINE NEGATIVE (NEGATIVE); OCCULT BLOOD,URINE NEGATIVE (NEGATIVE)
[2025-06-30 14:28] LABS: ADD UA MICROSCOPIC YES
[2025-06-30 14:29] LABS: OTHER CASTS, URINE 5 /LPF (None Seen); SQUAMOUS EPITHELIAL CELL,UR FEW /HPF (0-2); UNCLASSIFIED CRYSTAL 1 /HPF (None Seen); WBC CLUMP FEW /HPF (0-1)
[2025-06-30 14:37] LABS: CREATININE,URINE RANDOM 625.29 mg/dL (30-135)
[2025-06-30] MEDS: THIAMINE HCL 100 MG/ML 2ML VIAL IVP SCH (14:40)
--- NOTE | 2025-06-30 15:01 | HMCIMG ---
EXAM: US Retroperitoneum, Renal. CLINICAL HISTORY: TATE TECHNIQUE: Real-time ultrasound of the retroperitoneum with image documentation. COMPARISON: None provided. FINDINGS: RIGHT KIDNEY: Normal in size (10.3 x 4.9 x 5.3 cm) and contour. No renal mass or calculus. No hydronephrosis. LEFT KIDNEY: Normal in size( 11.5 x 5.6 x 5.5 cm) and contour. No renal mass or calculus. No hydronephrosis. BLADDER: Not fully distended. MISCELLANEOUS: No other significant abnormality evident. IMPRESSION: 1. No acute renal findings. /[place]
--- NOTE | 2025-06-30 16:32 | HMCIMG ---
EXAM: CR Chest, 1 View. CLINICAL HISTORY: r/o any significant infiltrates COMPARISON: None provided. FINDINGS: LUNGS: There is no mass, infiltrate, or acute pulmonary abnormality. PLEURAL SPACES: No pleural effusion or pneumothorax. MEDIASTINUM: Cardiac size and mediastinal contours within normal limits. Prior sternotomy. BONES: No acute osseous abnormality. IMPRESSION: No acute cardiopulmonary pathology is evident. /[place]
[2025-06-30] MEDS: ZOSYN 3.375GM +NS 50ML IVPB SCH (17:08)
[2025-06-30] MEDS ORDERED: 0.9%NACL 50ML IV SCH (18:00)
--- NOTE | 2025-06-30 18:19 | NUR ---
ATTEMPTED TO GIVE REPORT X 3 CALLS, WITNESSED BY MOISES VALENCIA, NO ANSWER
[2025-06-30] MEDS ORDERED: CARV6.25 PO (20:26)
[2025-06-30] MEDS ORDERED: SPIR25TA6 PO (20:26)
[2025-06-30] MEDS ORDERED: MEMA5TAB16 PO (20:26)
[2025-06-30] MEDS ORDERED: VALS40TA11 PO (20:26)
[2025-06-30] MEDS ORDERED: ATOR40TA71 PO (20:26)
[2025-06-30] MEDS ORDERED: SERT-438 PO (20:26)
[2025-06-30] MEDS ORDERED: RANO10005 PO (20:26)
[2025-06-30] MEDS ORDERED: TAMS-55 PO (20:26)
--- NOTE | 2025-06-30 20:38 | HMCSR ---
APPROVED REPORT EXAM: Two-dimensional and M-mode echocardiogram with Doppler and color Doppler. INDICATION ICD: Rule out heart failure 2D Dimensions RVDd 2.8 cm LVEF(%) 33.7 (>50%) LVED Vol(simp.) 94.0 mL IVSd 0.7 (0.7-1.1cm) FS(%) 16 % LVES Vol(simp.) 57.0 mL LVDd 5.3 (3.8-5.6cm) LA (2D) 4.1 (1.6-4.0cm) LVEF(%, simp.) 39 % PWd 0.8 (0.7-1.1cm) Ao Root(2D) 3.4 (2.0-3.7cm) LA ESV INDEX (BP) 23.64 mL/m2 IVSs 0.8 cm LVOT diam 2.6 (1.8-2.4cm) LVDs 4.4 (2.5-4.0cm) PWs 1.1 cm Deformation Strain Apical 4 -13.5 % Apical 2 -8.1 % Apical 3 -13.6 % Global Strain -11.7 % M-Mode Dimensions LA (MM) 4.6 (1.6-4.0cm) Ao Root(MM) 3.0 (2.0-3.7cm) Aortic Valve AoV Vmax 1.1 m/s Ao Peak GR 4.7 mmHg LVOT Vmax 0.7 m/s AoV VTI 0.2 m Ao Mean GR 2.8 mmHg LVOT VTI 0.11 m CARI (VMAX) 3.40 cm2 CARI (VTI) 3.2 cm2 Mitral Valve MV E Vmax 43.1 cm/s DECEL Time 206 ms MV A Vmax 94.0 cm/s P 1/2 T 59 ms E/A ratio 0.5 MVA (PHT) 3.7 cm2 TDI E/E' Medial 9.7 E/E' Lateral 5.6 Medial E' Peak V 4.44 cm/s Lateral E' Peak V 7.66 cm/s Pulmonary Valve PV Vmax 1.2 m/s PV Mean GR 3.0 mmHg PV Peak GR 5.8 mmHg Tricuspid Valve RAP (EST) 8 mmHg RVSP 8.0 mmHg Left Ventricle The left ventricle is mildly dilated. GLS -12.0% Anteroapical severe hypokinesis. Limited apical akinesis. Inferoseptal severe hypokinesis. There is normal left ventricular wall thickness. LVEF is 30-35%. Stage I diastolic dysfunction. Right Ventricle The right ventricle is normal size. Right ventricular systolic function is moderately reduced. Reduced TAPSE of 1.3 cm. Atria The left atrium size is normal. The right atrium size is normal. Aortic Valve Aortic valve is trileaflet and opens well. No aortic regurgitation is present. There is no aortic valvular stenosis. Mitral Valve The mitral valve is normal in structure. There is no mitral valve regurgitation noted. There is no mitral valve stenosis. Tricuspid Valve The tricuspid valve is normal in structure. There is no tricuspid valve regurgitation noted. Pulmonic Valve Pulmonic valve is not well visualized. There is no pulmonic valvular regurgitation. Great Vessels The aortic root is normal in size. IVC is not well visualized. Pericardium There is no pericardial effusion. Other Information Quality : Technically difficult study due to body habitus Conclusion The left ventricle is mildly dilated. There is normal left ventricular wall thickness. GLS -12.0% Anteroapical severe hypokinesis. Limited apical akinesis. Inferoseptal severe hypokinesis. LVEF is 30-35%. Stage I diastolic dysfunction. Right ventricular systolic function is moderately reduced. Reduced TAPSE of 1.3 cm. Aortic valve is trileaflet and opens well. There is no mitral valve regurgitation noted. There is no pericardial effusion.
--- NOTE | 2025-06-30 21:06 | NUR ---
REPORT GIVEN TO KINDRA VALENCIA
[2025-06-30 21:10] VITALS: BP 92/63; PULSE 81; RESP 16; TEMP 97.2
[2025-06-30 21:45] VITALS: O2SAT 94
[2025-06-30 23:51] VITALS: BP 105/52; PULSE 78; RESP 16; TEMP 97.4
[2025-07-01 04:00] VITALS: BP 98/76; PULSE 92; RESP 12; TEMP 97.9
[2025-07-01 05:00] LABS: IMMATURE GRANULOCYTE ABSOLUTE 0.11 K/uL (0-1); NUCLEATED RED BLOOD CELLS 0.0 % (0.0-0.19); PLATELET COUNT (AUTO) 154 K/uL (130-400); RED BLOOD CELL COUNT(AUTO) 5.01 MIL/uL (4.50-6.20); RED CELL DISTRIBUTION WIDTH 13.3 % (11.0-15.5); WHITE BLOOD COUNT (AUTO) 13.8 K/uL (4.8-10.8)
[2025-07-01 05:14] LABS: CREATININE 2.5 mg/dL (0.5-1.3); GLOMERULAR FILTR. RATE CALC 27.0 mL/min (>90); GLUCOSE,RANDOM 114.0 mg/dL (70-105); SODIUM SERUM 131.0 mmol/L (136-145); UREA NITROGEN, BLOOD 39.0 mg/dL (7-18)
[2025-07-01 08:00] VITALS: BP 139/87; PULSE 69; RESP 20; TEMP 98
[2025-07-01] MEDS ORDERED: RENAL DOSE IV SCH (09:00)
[2025-07-01] MEDS ORDERED: SPIRONOLACTONE 25 MG TAB PO SCH (09:00)
[2025-07-01] MEDS: 0.9%NACL 1000ML 1,000 ML IV ONE (09:12)
[2025-07-01] MEDS: PoTASSium chloRIDE 20MEQ ER 20 MEQ ERTAB PO ONE ×2 (09:21→16:20)
[2025-07-01] MEDS: Vitamin B Complex/Vit C/Folic Acid PO SCH (09:21)
[2025-07-01] MEDS: RANOLAZINE 500 MG TAB.SR.12H PO SCH (09:21)
[2025-07-01 12:00] VITALS: BP 112/72; PULSE 73; RESP 20; TEMP 98
[2025-07-01] MEDS: LACTOBACILLUS RHAMNOSUS GG 1 EACH CAP.SPRINK PO SCH (12:57)
[2025-07-01 13:10] LABS: NUCLEATED RED BLOOD CELLS 0.0 % (0.0-0.19); PLATELET COUNT (AUTO) 146 K/uL (130-400); RED BLOOD CELL COUNT(AUTO) 4.68 MIL/uL (4.50-6.20); RED CELL DISTRIBUTION WIDTH 13.4 % (11.0-15.5); WHITE BLOOD COUNT (AUTO) 12.8 K/uL (4.8-10.8)
[2025-07-01 13:24] LABS: ASPARTATE AMINOTRANSFERASE 13.0 U/L (10-37); CREATININE 2.1 mg/dL (0.5-1.3); GLOMERULAR FILTR. RATE CALC 34.0 mL/min (>90); GLUCOSE,RANDOM 146.0 mg/dL (70-105); SODIUM SERUM 131.0 mmol/L (136-145); TOTAL PROTEIN, SERUM 6.4 g/dL (6.0-8.3); UREA NITROGEN, BLOOD 43.0 mg/dL (7-18)
[2025-07-01 14:56] LABS: CREATININE 1.9 mg/dL (0.5-1.3); GLOMERULAR FILTR. RATE CALC 38.0 mL/min (>90); GLUCOSE,RANDOM 139.0 mg/dL (70-105); SODIUM SERUM 132.0 mmol/L (136-145); UREA NITROGEN, BLOOD 41.0 mg/dL (7-18)
--- NOTE | 2025-07-01 15:41 | PN ---
[facility] PROGRESS NOTE Date of Service: Jul 01, 2025 Time of Service: 15:[address] Morgan SUBJECTIVE: [ 06/30 This is a 69-year-old male with underlying history of coronary artery disease with prior history of coronary artery bypass grafting in 2014, previous history of OH in 2019 status post PCI, hyperlipidemia, type 2 diabetes mellitus, history of FRANC, who presented to the ER for further evaluation of nausea, vomiting, and nonresolving multiple episodes of nonbloody diarrhea ongoing since , five days ago. Patient's is present at bedside and she reports that patient has been having intractable nausea and vomiting and multiple episodes of diarrhea. He has been using the restroom every 10-20 minutes in the diarrhea has been nonresolving. Denies any antibiotic use as outpatient. Denies significant abdominal pain. There is no blood in the stool either. Patient has been feeling dizzy since the symptoms started. He is supposed to be on valsartan 40 mg daily for blood pressure control as outpatient but he has been holding the medication over the last two days due to dizziness. Denies any syncopal falls. On presentation to the hospital, patient was noted to be afebrile with T-max of 97.7 F, heart rate of 88 and blood pressure of 107/78. [place] [address] with hemoglobin of 17.5, platelet count of 550828. BMP showed sodium of 133, potassium 3.7, chloride of 97, BUN of 29, creatinine 1.9, blood glucose of 148. Patient underwent further evaluation with noncontrast CT abdomen pelvis which showed mildly prominent fluid-filled loops of small and large bowel reflecting acute enterocolitis. Patient will be admitted to hospitalist service for further management of significant dehydration, acute kidney injury, nonresolving persistent infectious enterocolitis. Patient will receive IV fluids, IV antibiotics. Consultation with Nephrology and Infectious Disease will be requested this admission. Patient will undergo further infectious workup of the diarrhea. We will see how patient progresses in the next 48-72 hours. 07/01/25 patient was seen by nurse practitioner and physician during rounding in room 307. Patient's urinalysis came back positive for leukocytosis. Urine culture and blood culture was sent to the lab for further evaluation. Creatinine today has worsened up today is at 2.5 BUN41 GFR 38. As per postal superintendent patient will receive1 L bolus of normal saline. We will continue antibiotics Zosyn. C diff negative. Patient will also receive 40 mEq of potassium in the meantime. CT abdomen/pelvis showed enterocolitis. Renal ultrasound was negative. We are pending further recommendations as per ID. Home medication reconciled by [employer]. We will continue to monitor patient in the meantime. A.m. labs] REVIEW OF SYSTEMS CONSTITUTIONAL: Denies fevers, chills, or night sweats. No unintentional weight loss reported. NEUROLOGICAL: Denies headache, amaurosis fugax, motor weakness, sensory deficit, vertigo/spinning sensation, gait abnormalities, or tremors. ENT: No hearing loss, otalgia, otorrhea, rhinitis, rhinorrhea, hoarseness, or sore throat. CARDIOVASCULAR: Denies any exertional angina, dyspnea on exertion, orthopnea, paroxysmal nocturnal dyspnea, palpitations, life-threatening arrhythmias, claudication. PULMONARY: Denies any shortness of breath, cough, phlegm/sputum, hemoptysis, pleuritic chest pain. SLEEP: Denies morning headaches, daytime somnolence or napping. Denies difficulty falling asleep, staying asleep, waking from sleep. Denies knowledge of snoring. GASTROINTESTINAL: nausea, vomiting, persistent non resolving diarrhea x 5 days GENITOURINARY: Denies frequency, urgency, nocturia, hematuria or incontinence (Storage/Irritative symptoms.) Low urinary stream, straining to void, urinary intermittency or hesitancy, splitting of the voiding stream, terminal dribbling. ENDOCRINOLOGIC: Denies polyuria, polydipsia, polyphagia or heat/cold intolerances. HEMATOLOGIC: Denies thrombophilia/previous clots, or coagulopathy/bleeding disorders. ONCOLOGIC: Denies personal history of malignancy. DERMATOLOGIC: Denies rashes or pruritus. PSYCHIATRIC: Denies any suicidal or homicidal ideation. Denies hallucinations. PHYSICAL EXAM GENERAL APPEARANCE: The patient is awake, alert, and oriented, in no acute cardiopulmonary distress. NEUROLOGICAL: Cranial nerves II-XII grossly intact. Motor is 5/5 in bilateral upper and lower extremities proximal to distal. No sensory deficits. HEENT: Face is symmetric. Pupils are equal and reactive. Extraocular movements are intact. NECK: Supple. No JVD. No thyromegaly. No submental, submandibular, pre- /postauricular, occipital or supraclavicular lymphadenopathy. CHEST: Normal chest expansion. No Telemetry. LUNGS: Absence of any rales, rhonchi or any wheezing. CARDIOVASCULAR: Regular. S1 and S2 normal. No appreciable rubs, murmurs or gallops. ABDOMEN: Soft, nontender, and nondistended. There is no rebound, voluntary guarding, or rigidity. : Deferred. No Andrews. EXTREMITIES: Non-edematous and not cyanotic. No clubbing. Good capillary refill. SKIN: No skin breakdown. Vital Signs (last 8hr) Date Time Temp Pulse Resp B/P (MAP) Pulse Ox O2 Delivery O2 Flow Rate FiO2 07/01/25 12:00 98.1 73 20 112/72 100 Room Air 07/01/25 09:21 Room Air* 0 21 07/01/25 08:00 98.1 69 20 139/87 99 Room Air LABS: Laboratory: Test 07/01/25 14:40 07/01/25 12:55 07/01/25 11:05 07/01/25 04:42 Range/Units Sodium Level 132 L 136-145 mmol/L Potassium Level 3.3 L 3.5-5.1 mmol/L Chloride Level 99 L 101-111 mmol/L Carbon Dioxide Level 26 21-32 mmol/L Blood Urea Nitrogen 41 H 7-18 mg/dL Creatinine 1.9 H 0.5-1.3 mg/dL Glomerular Filtration Rate Calc 38 >90 mL/min Random Glucose 139 H 70-105 mg/dL Total Calcium 8.2 L 8.5-10.1 mg/dL White Blood Count 12.8 H 4.8-10.8 K/uL Red Blood Count 4.68 4.50-6.20 MIL/uL Hemoglobin 15.4 14.0-18.0 g/dL Hematocrit 42.5 42-54 % Mean Corpuscular Volume 90.8 79-99 fL Mean Corpuscular Hemoglobin 32.9 27.0-33.0 pg Mean Corpuscular Hemoglobin Concent 36.2 H 32.0-36.0 g/dL Red Cell Distribution Width 13.4 11.0-15.5 % Platelet Count 146 130-400 K/uL Mean Platelet Volume 12.2 H 7.5-10.5 fL Nucleated Red Blood Cells 0.0 0.0-0.19 % Red Blood Cell Morphology See comments Magnesium Level 1.60 L 1.80-2.40 mg/dL Total Bilirubin 0.4 0.2-1.0 mg/dL Aspartate Amino Transf (AST/SGOT) 13 10-37 U/L Alanine Aminotransferase (ALT/SGPT) 13 12-78 U/L Alkaline Phosphatase 85 50-136 U/L Total Protein 6.4 6.0-8.3 g/dL Albumin 3.0 L 3.5-5.0 g/dL Whole Blood Glucose 135 H 70-110 MG/DL Immature Granulocyte % (Auto) 0.8 0-1 % Neutrophils (%) (Auto) 69.1 40.0-77.0 % Lymphocytes (%) (Auto) 12.9 L 21.0-51.0 % Monocytes (%) (Auto) 11.6 3.0-13.0 % Eosinophils (%) (Auto) 5.3 0.0-8.0 % Basophils (%) (Auto) 0.3 0.0-5.0 % Neutrophils # (Auto) 9.5 H 1.8-7.7 K/uL Lymphocytes # (Auto) 1.8 1.0-4.8 K/uL Monocytes # (Auto) 1.6 H 0.1-1.0 K/uL Eosinophils # (Auto) 0.73 H 0.00-0.70 K/uL Basophils # (Auto) 0.04 0.00-0.20 K/uL Absolute Immature Granulocyte (auto 0.11 0-1 K/uL Test 06/30/25 14:00 06/30/25 12:53 06/30/25 08:49 Range/Units Urine Color YELLOW YELLOW Urine Appearance CLOUDY H CLEAR Urine pH 5.5 5.0-8.0 Urine Specific [place] 1.027 1.001-1.031 Urine Protein 50 H NEGATIVE mg/dL Urine Glucose (UA) NEGATIVE NEGATIVE mg/dL Urine Ketones NEGATIVE NEGATIVE mg/dL Urine Occult Blood NEGATIVE NEGATIVE Urine Nitrate NEGATIVE NEGATIVE Urine Bilirubin 0.5 H NEGATIVE mg/dL Urine Urobilinogen 2.0 H 0.2-1.0 mg/dL Urine Leukocyte Esterase 500 H NEGATIVE [place]/uL Urine RBC 2-5 H 0-1 /HPF Urine WBC 51-100 H 0-1 /HPF Urine WBC Clumps (Auto) FEW 0-1 /HPF Urine Squamous Epithelial Cells FEW 0-2 /HPF Urine Other Crystals (Auto) 1 None Seen /HPF Urine Bacteria FEW None Seen /HPF Urine Hyaline Casts 11-25 H 0-1 /LPF /LPF Urine Other Casts 5 None Seen /LPF Urine Random Creatinine 625.29 H 30-135 mg/dL Urine Random Sodium < 13 L 40-220 mmol/l C. difficile Antigen and Toxins A,B See comments NEG Erythrocyte Sedimentation Rate 8 0-20 MM/HR Prothrombin Time 11.9 H 9.6-11.6 SEC Prothromb Time International Ratio 1.14 0.85-1.15 Activated Partial Thromboplast Time 25.3 L 26.3-35.5 SEC Hemoglobin A1c 5.4 4.0-6.0 % Estimated Average Glucose (eAG) 108 70-126 mg/dL Lactic Acid Level 1.6 0.8-2.5 mmol/L Lactate Dehydrogenase 166 81-234 U/L C-Reactive Protein, Quantitative 4.10 H 0.5-3.0 mg/L B-Type Natriuretic Peptide 29 0-100 pg/mL Procalcitonin 0.05 0.05-0.5 ng/mL Thyroid Stimulating Hormone (TSH) 1.39 # 0.36-3.74 uIU/mL Direct Bilirubin 0.2 0.0-0.3 mg/dL Ammonia < 10 L 11-32 umol/L Total Creatine Kinase 56 # 21-232 U/L Troponin I High Sensitivity 23 4-75 ng/L Lipase 19 16-77 U/L Current Medications Medications (Trade) Dose Ordered Sig/Carroll Route PRN Reason Start Time Stop Time Status Last Admin Dose Admin Acetaminophen (TYLenol 325MG TAB) 650 mg Q6H PRN PO MILD PAIN (1-3) 06/30/25 13:00 07/30/25 12:59 06/30/25 14:47 650 MG Atorvastatin Calcium (LIPItor 40MG) 40 mg HS PO 07/01/25 21:00 07/31/25 20:59 Carvedilol (Coreg 6.25MG) 6.25 mg BID PO 07/01/25 09:00 07/01/25 09:05 DC Ceftriaxone Sodium (ROCEphine 1G INJ) 1 gm Q12H IVPB 06/30/25 13:00 06/30/25 16:31 DC 06/30/25 13:45 1 GM Dextrose (D50w) 50 ml AD PRN IV HYPOGLYCEMIA PROTOCOL 06/30/25 14:00 07/30/25 13:59 Glucagon (Glucagon 1mg Kit) 1 mg AD PRN IM HYPOGLYCEMIA PROTOCOL 06/30/25 14:00 07/30/25 13:59 Insulin Human Regular (humuLIN R 100 UNIT/ML 3ML) INSULIN SLIDING SCAL... ACHS SQ 06/30/25 16:30 07/30/25 16:29 Lactobacillus Rhamnosus ([facility] [employer] & [employer]) 1 each BID PO 07/01/25 13:00 07/31/25 12:59 07/01/25 12:57 1 EACH Losartan Potassium (CozAAR 25MG TAB) 25 mg DAILY PO 07/02/25 09:00 07/01/25 09:05 DC Memantine (NAmenDA 5 MG TAB) 5 mg BID PO 07/01/25 09:00 07/31/25 08:59 07/01/25 09:21 5 MG Metronidazole/ Sodium Chloride 100 ml @ 100 mls/hr Q8H IVPB 06/30/25 22:30 06/30/25 16:31 DC Metronidazole/ Sodium Chloride 100 ml @ 100 mls/hr TID IVPB 06/30/25 14:00 06/30/25 14:02 DC 06/30/25 13:45 100 MLS/HR Morphine Sulfate (morPHINE 4MG SYG) 4 mg ONCE STAT IVP 06/30/25 08:47 06/30/25 08:49 DC 06/30/25 09:02 4 MG Ondansetron HCl (zoFRAN 4MG INJ) 4 mg ONCE STAT IVP 06/30/25 08:47 06/30/25 08:49 DC 06/30/25 09:02 4 MG Ondansetron HCl (zoFRAN 4MG INJ) 4 mg Q6H PRN IVP NAUSEA/VOMITING 06/30/25 13:00 07/30/25 12:59 Pantoprazole Sodium (PROTonix 40MG INJ) 40 mg Q24H IVP 06/30/25 13:00 07/30/25 12:59 07/01/25 12:57 40 MG Piperacillin Sod/ Tazobactam Sod (Zosyn 3.375gm+NS 50ml) 3.375 gm BID IVPB 07/01/25 21:00 07/10/25 17:59 Piperacillin Sod/ Tazobactam Sod (Zosyn 3.375gm+NS 50ml) 3.375 gm Q8H IVPB 06/30/25 18:00 07/01/25 09:32 DC 07/01/25 09:21 3.375 GM Ranolazine (Ranexa) 1,000 mg Q12H9 PO 07/01/25 09:00 07/31/25 08:59 07/01/25 09:21 1,000 MG Sertraline HCl (ZOloft 50 mg tab) 25 mg DAILY PO 07/02/25 09:00 08/01/25 08:59 Sodium Chloride 1,000 ml @ 100 mls/hr Q10H IV 06/30/25 13:00 07/30/25 12:59 06/30/25 13:45 75 MLS/HR Sodium Chloride (NS 50ml) 50 ml AD IV 06/30/25 18:00 07/01/25 08:50 DC Spironolactone (Aldactone 25mg) 25 mg DAILY PO 07/01/25 09:00 07/01/25 09:05 DC Tamsulosin HCl (FloMAX) 0.4 mg DAILY PO 07/01/25 09:00 07/31/25 08:59 07/01/25 09:21 0.4 MG Tamsulosin HCl (FloMAX) 0.4 mg HS PO 07/01/25 21:00 07/01/25 09:06 DC Thiamine HCl (Vitamin B-1) 100 mg Q24H IVP 06/30/25 14:30 07/30/25 14:29 07/01/25 13:45 100 MG Vitamin B Complex/ Vit C/Folic Acid (Nephrovite Tablet) 1 cap DAILY PO 07/01/25 09:00 07/31/25 08:59 07/01/25 09:21 1 CAP DIAGNOSTICS / RADIOLOGY: [ ] ASSESSMENT: Infectious enterocolitis, POA [id number] dehydration, POA 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 Urine culture and blood culture was sent to the lab for further evaluation. Creatinine today has worsened up today is at 2.5 BUN41 GFR 38. As per postal superintendent patient will receive1 L bolus of normal saline. We will continue antibiotics Zosyn. C diff negative. Patient will also receive 40 mEq of potassium in the meantime. CT abdomen/pelvis showed enterocolitis. Renal ultrasound was negative. We are pending further recommendations as per ID. Home medication reconciled by [employer]. We will continue to monitor patient in the meantime. A.m. labs Continue IV hydration with NS at 100 mL/hour, we will check a lactic acid Consultation with Infectious Disease and Nephrology will be requested We will continue to hold valsartan due to soft blood pressure as well as TATE, we will obtain a renal ultrasound, we will send further workup of TATE including FENA testing, obtain urinalysis to rule out urinary tract infection Patient will be placed on fall precautions, we will start patient on a lactose- free diet as well Home medication reconciled by [employer] 07/01/2025 We will avoid NSAIDs, IV contrast All labs will be repeated in the morning If diarrhea is non resolving in the next 48-72 hours, will obtain GI evaluation as well ATTESTATION BY PHYSICIAN I have seen and examined the patient. I reviewed the documentation, medical decision making, and treatment plan as noted by the mid-level provider above. I agree with the findings and plan of care. BELKIS MORGAN MD, KATARZYNA B [facility] Jul 01, 2025 15:41
[2025-07-01 16:00] VITALS: BP 124/76; PULSE 76; RESP 20; TEMP 98.1
--- NOTE | 2025-07-01 16:49 | CONS ---
GASTROENTEROLOGY CONSULTATION NOTE Date of Consultation: Jul 01, 2025 Time of Consultation: 16:49 History of Present Illness: This is a 69-year-old male with past medical history of CAD with CABG, previous PA, hyperlipidemia, type 2 diabetes who presented due to nausea, vomiting and diarrhea ongoing since . He reports over 15 episodes of diarrhea in a day. Denies any contributing factors. Imaging revealing enterocolitis. No recent EGD or colonoscopy. Review of Systems: CONSTITUTIONAL: No malaise or change in sensation of wellbeing. ENMT: No rhinorrhea, otorrhea, sinus pain, ear ache. CARDIOVASCULAR: No angina, palpitations, orthopnea or paroxysmal dyspnea. RESPIRATORY: No SOB. GASTROINTESTINAL: No abdominal pain, nausea, vomiting, diarrhea, hematemesis, melena or change in the patient's habitual bowel movements consistency/number. GENITOURINARY: No dysuria, hematuria or change in bladder continence. MUSCULOSKELETAL: No new muscle pain or decrease in muscular strength. No new joint swelling, redness or tenderness. SKIN: No new rash. Past Medical History: PAST MEDICAL HISTORY: Hypertension, type 2 diabetes mellitus, obstructive sleep apnea, obesity, hyperlipidemia, history of PA in 2019, history of multivessel coronary artery disease PAST SURGICAL HISTORY: Coronary artery bypass grafting in 2013, history of PCI with cardiac stent in 2019, left shoulder surgery, cholecystectomy PAST SOCIAL HISTORY: Patient denies active smoking or alcohol consumption, resides with at home FAMILY HISTORY: Denies pertinent family history Allergies: No known drug allergies Home medications: Patient reports being on valsartan 40 mg daily, Ranexa 1000 mg twice daily, prn nitroglycerin, tadalafil Coded Allergies: No Known Drug Allergies (Unverified Allergy, 04/10/12) Physical Exam: GEN: Awake, alert, oriented in person, time and place, and in no acute distress. HEENT: No sinus tenderness. Tympanic membranes were not examined. No rhinorrhea. Oral pharyngeal mucosa is pink, moist and within normal limits. Neck is supple with no cervical lymphadenopathy, thyromegaly or JVD. CHEST: Inspection, palpation and percussion of the chest were unremarkable. Lung auscultation revealed normal breath sounds bilaterally. CARDIAC: PMI is within normal limits. Heart sounds are regular. Normal S1, S2. No gallop or murmur. ABD: Soft, non-tender and not distended. No peritoneal signs on palpation. No organomegaly. Normal bowel sounds. EXT: No cyanosis or clubbing. No edema. SKIN: Intact. No rashes. JOINTS: No evidence of synovitis or acute arthritis. NEURO: Alert and oriented to name, place and person. Cranial nerve examination is unremarkable. No focal motor deficits. Normal speech. Gait is normal. Strength is normal. Vital Sign (Last 24 Hours) 07/01/25 07/01/25 09:21 12:00 Temp 98.1 Pulse 73 Resp 20 B/P (MAP) 112/72 Pulse Ox 100 O2 Delivery Room Air O2 Flow Rate 0 FiO2 21 Laboratory: [ ] Laboratory: Test 07/01/25 15:36 07/01/25 14:40 07/01/25 12:55 07/01/25 04:42 Range/Units Whole Blood Glucose 183 H 70-110 MG/DL Sodium Level 132 L 136-145 mmol/L Potassium Level 3.3 L 3.5-5.1 mmol/L Chloride Level 99 L 101-111 mmol/L Carbon Dioxide Level 26 21-32 mmol/L Blood Urea Nitrogen 41 H 7-18 mg/dL Creatinine 1.9 H 0.5-1.3 mg/dL Glomerular Filtration Rate Calc 38 >90 mL/min Random Glucose 139 H 70-105 mg/dL Total Calcium 8.2 L 8.5-10.1 mg/dL White Blood Count 12.8 H 4.8-10.8 K/uL Red Blood Count 4.68 4.50-6.20 MIL/uL Hemoglobin 15.4 14.0-18.0 g/dL Hematocrit 42.5 42-54 % Mean Corpuscular Volume 90.8 79-99 fL Mean Corpuscular Hemoglobin 32.9 27.0-33.0 pg Mean Corpuscular Hemoglobin Concent 36.2 H 32.0-36.0 g/dL Red Cell Distribution Width 13.4 11.0-15.5 % Platelet Count 146 130-400 K/uL Mean Platelet Volume 12.2 H 7.5-10.5 fL Nucleated Red Blood Cells 0.0 0.0-0.19 % Red Blood Cell Morphology See comments Magnesium Level 1.60 L 1.80-2.40 mg/dL Total Bilirubin 0.4 0.2-1.0 mg/dL Aspartate Amino Transf (AST/SGOT) 13 10-37 U/L Alanine Aminotransferase (ALT/SGPT) 13 12-78 U/L Alkaline Phosphatase 85 50-136 U/L Total Protein 6.4 6.0-8.3 g/dL Albumin 3.0 L 3.5-5.0 g/dL Immature Granulocyte % (Auto) 0.8 0-1 % Neutrophils (%) (Auto) 69.1 40.0-77.0 % Lymphocytes (%) (Auto) 12.9 L 21.0-51.0 % Monocytes (%) (Auto) 11.6 3.0-13.0 % Eosinophils (%) (Auto) 5.3 0.0-8.0 % Basophils (%) (Auto) 0.3 0.0-5.0 % Neutrophils # (Auto) 9.5 H 1.8-7.7 K/uL Lymphocytes # (Auto) 1.8 1.0-4.8 K/uL Monocytes # (Auto) 1.6 H 0.1-1.0 K/uL Eosinophils # (Auto) 0.73 H 0.00-0.70 K/uL Basophils # (Auto) 0.04 0.00-0.20 K/uL Absolute Immature Granulocyte (auto 0.11 0-1 K/uL Test 06/30/25 14:00 06/30/25 12:53 06/30/25 08:49 Range/Units Urine Color YELLOW YELLOW Urine Appearance CLOUDY H CLEAR Urine pH 5.5 5.0-8.0 Urine Specific Jordan 1.027 1.001-1.031 Urine Protein 50 H NEGATIVE mg/dL Urine Glucose (UA) NEGATIVE NEGATIVE mg/dL Urine Ketones NEGATIVE NEGATIVE mg/dL Urine Occult Blood NEGATIVE NEGATIVE Urine Nitrate NEGATIVE NEGATIVE Urine Bilirubin 0.5 H NEGATIVE mg/dL Urine Urobilinogen 2.0 H 0.2-1.0 mg/dL Urine Leukocyte Esterase 500 H NEGATIVE [place]/uL Urine RBC 2-5 H 0-1 /HPF Urine WBC 51-100 H 0-1 /HPF Urine WBC Clumps (Auto) FEW 0-1 /HPF Urine Squamous Epithelial Cells FEW 0-2 /HPF Urine Other Crystals (Auto) 1 None Seen /HPF Urine Bacteria FEW None Seen /HPF Urine Hyaline Casts 11-25 H 0-1 /LPF /LPF Urine Other Casts 5 None Seen /LPF Urine Random Creatinine 625.29 H 30-135 mg/dL Urine Random Sodium < 13 L 40-220 mmol/l C. difficile Antigen and Toxins A,B See comments NEG Erythrocyte Sedimentation Rate 8 0-20 MM/HR Prothrombin Time 11.9 H 9.6-11.6 SEC Prothromb Time International Ratio 1.14 0.85-1.15 Activated Partial Thromboplast Time 25.3 L 26.3-35.5 SEC Hemoglobin A1c 5.4 4.0-6.0 % Estimated Average Glucose (eAG) 108 70-126 mg/dL Lactic Acid Level 1.6 0.8-2.5 mmol/L Lactate Dehydrogenase 166 81-234 U/L C-Reactive Protein, Quantitative 4.10 H 0.5-3.0 mg/L B-Type Natriuretic Peptide 29 0-100 pg/mL Procalcitonin 0.05 0.05-0.5 ng/mL Thyroid Stimulating Hormone (TSH) 1.39 # 0.36-3.74 uIU/mL Direct Bilirubin 0.2 0.0-0.3 mg/dL Ammonia < 10 L 11-32 umol/L Total Creatine Kinase 56 # 21-232 U/L Troponin I High Sensitivity 23 4-75 ng/L Lipase 19 16-77 U/L Current Medications Medications (Trade) Dose Ordered Sig/Carroll Route PRN Reason Start Time Stop Time Status Last Admin Dose Admin Acetaminophen (TYLenol 325MG TAB) 650 mg Q6H PRN PO MILD PAIN (1-3) 06/30/25 13:00 07/30/25 12:59 06/30/25 14:47 650 MG Atorvastatin Calcium (LIPItor 40MG) 40 mg HS PO 07/01/25 21:00 07/31/25 20:59 Carvedilol (Coreg 6.25MG) 6.25 mg BID PO 07/01/25 09:00 07/01/25 09:05 DC Ceftriaxone Sodium (ROCEphine 1G INJ) 1 gm Q12H IVPB 06/30/25 13:00 06/30/25 16:31 DC 06/30/25 13:45 1 GM Dextrose (D50w) 50 ml AD PRN IV HYPOGLYCEMIA PROTOCOL 06/30/25 14:00 07/30/25 13:59 Glucagon (Glucagon 1mg Kit) 1 mg AD PRN IM HYPOGLYCEMIA PROTOCOL 06/30/25 14:00 07/30/25 13:59 Insulin Human Regular (humuLIN R 100 UNIT/ML 3ML) INSULIN SLIDING SCAL... ACHS SQ 06/30/25 16:30 07/30/25 16:29 07/01/25 16:22 2 UNIT Lactobacillus Rhamnosus ([facility] [employer] Resume) 1 each BID PO 07/01/25 13:00 07/31/25 12:59 07/01/25 12:57 1 EACH Losartan Potassium (CozAAR 25MG TAB) 25 mg DAILY PO 07/02/25 09:00 07/01/25 09:05 DC Memantine (NAmenDA 5 MG TAB) 5 mg BID PO 07/01/25 09:00 07/31/25 08:59 07/01/25 09:21 5 MG Metronidazole/ Sodium Chloride 100 ml @ 100 mls/hr Q8H IVPB 06/30/25 22:30 06/30/25 16:31 DC Metronidazole/ Sodium Chloride 100 ml @ 100 mls/hr TID IVPB 06/30/25 14:00 06/30/25 14:02 DC 06/30/25 13:45 100 MLS/HR Morphine Sulfate (morPHINE 4MG SYG) 4 mg ONCE STAT IVP 06/30/25 08:47 06/30/25 08:49 DC 06/30/25 09:02 4 MG Ondansetron HCl (zoFRAN 4MG INJ) 4 mg ONCE STAT IVP 06/30/25 08:47 06/30/25 08:49 DC 06/30/25 09:02 4 MG Ondansetron HCl (zoFRAN 4MG INJ) 4 mg Q6H PRN IVP NAUSEA/VOMITING 06/30/25 13:00 07/30/25 12:59 Pantoprazole Sodium (PROTonix 40MG INJ) 40 mg Q24H IVP 06/30/25 13:00 07/30/25 12:59 07/01/25 12:57 40 MG Piperacillin Sod/ Tazobactam Sod (Zosyn 3.375gm+NS 50ml) 3.375 gm BID IVPB 07/01/25 21:00 07/10/25 17:59 Piperacillin Sod/ Tazobactam Sod (Zosyn 3.375gm+NS 50ml) 3.375 gm Q8H IVPB 06/30/25 18:00 07/01/25 09:32 DC 07/01/25 09:21 3.375 GM Ranolazine (Ranexa) 1,000 mg Q12H9 PO 07/01/25 09:00 07/31/25 08:59 07/01/25 09:21 1,000 MG Sertraline HCl (ZOloft 50 mg tab) 25 mg DAILY PO 07/02/25 09:00 08/01/25 08:59 Sodium Chloride 1,000 ml @ 100 mls/hr Q10H IV 06/30/25 13:00 07/30/25 12:59 06/30/25 13:45 75 MLS/HR Sodium Chloride (NS 50ml) 50 ml AD IV 06/30/25 18:00 07/01/25 08:50 DC Spironolactone (Aldactone 25mg) 25 mg DAILY PO 07/01/25 09:00 07/01/25 09:05 DC Tamsulosin HCl (FloMAX) 0.4 mg DAILY PO 07/01/25 09:00 07/31/25 08:59 07/01/25 09:21 0.4 MG Tamsulosin HCl (FloMAX) 0.4 mg HS PO 07/01/25 21:00 07/01/25 09:06 DC Thiamine HCl (Vitamin B-1) 100 mg Q24H IVP 06/30/25 14:30 07/30/25 14:29 07/01/25 13:45 100 MG Vitamin B Complex/ Vit C/Folic Acid (Nephrovite Tablet) 1 cap DAILY PO 07/01/25 09:00 07/31/25 08:59 07/01/25 09:21 1 CAP Diagnostics / Radiology: [COPY/PASTE HERE IF NO REPORTS PLEASE DELETE SECTION] Assessment: N/V Diarrhea CAD DM Plan: EGD/colonoscopy in am Continue GI prophylaxis Advance diet as tolerated Avoid NSAIDs Antireflux measures Monitor H&H and transfuse as needed Call with questions, concerns or change in clinical status Patient to follow-up at clinic post discharge Thank you for this consult ANA ALEJANDRE CLOTHES PRESSER Jul 01, 2025 16:49
[2025-07-01] MEDS: PEG 3350/NA SULF,BICARB,CL/KCL 4000 ML SOLN PO ONE (17:16)
--- NOTE | 2025-07-01 17:40 | NUR ---
MD CALL DR. MORGAN CALLED. UPDATE GIVEN. ORDERED MG AND K PROTOCOLS. AWARE OF RECENT LABS. ORDERED STAT VENOUS BLOOD GAS. NO FURTHER ORDERS GIVEN AT THIS TIME.
[2025-07-01] MEDS ORDERED: PoTASSium chl 10% ELIXIR 20MEQ 20 MEQ/15 ML UDCUP PO PRN (18:00)
[2025-07-01 18:45] LABS: ABG BASE EXCESS -3.1 mmol/L (-2.0-3.0); ABG HCO3 23.3 mmol/L (21.0-28.0); ABG OXYGEN SATURATION 28.1 % (94.0-98.0); ABG PCO2 47 mmHg (35-48); ABG PH 7.315 (7.350-7.450); DEVICE COMMENT RN; PO2, ARTERIAL BG < 45.0 mmHg (83.0-108.0); TEMPERATURE, CELSIUS BG 37.0 CELSIUS (35.5-37.0); VENT MODE, BG RA (ROOM AIR)
[2025-07-01 20:00] VITALS: BP 111/67; PULSE 64; RESP 12; TEMP 98
--- NOTE | 2025-07-01 20:09 | CONS ---
REFERRING PHYSICIAN: Dr. Han Santoro REASON FOR CONSULTATION: Renal failure. HISTORY OF PRESENT ILLNESS: This is a 69-year-old male with a history of mild hypertension. He has a history of known coronary artery disease. The patient presents to the hospital with a 3-day history of significant nausea, vomiting, and diarrhea. The patient states he was unable to hold any of the food down. He denies any sick contacts. In the Emergency Room, the patient was found to have an elevated BUN and creatinine as well as significant volume depletion and he is being seen in consultation for all above. PAST MEDICAL HISTORY: He has mild hypertension and coronary artery disease. SOCIAL HISTORY: He lives independently. There is no tobacco use. FAMILY HISTORY: There is no renal disease in the family. REVIEW OF SYSTEMS: GENERAL: He is feeling weak and tired. HEENT: No change in vision. No change in hearing. CARDIOVASCULAR: There is no current chest pains or palpitations. PULMONARY: No shortness of breath. GASTROINTESTINAL: He is tolerating a diet. MUSCULOSKELETAL: Complains of weakness. NEUROLOGIC: No seizures or focal deficits. PSYCHIATRIC: No history of hallucinations or psychosis. ENDOCRINE: Diabetes mellitus. No history of thyroid disease. HEME: No history of anemia or malignancy. PHYSICAL EXAMINATION: VITAL SIGNS: Blood pressure is 103/73, pulse in the 70s. He is afebrile. GENERAL: He is a chronically ill male lying in bed in the medical floor. HEENT: Head is atraumatic. Pupils are equal, round, and reactive to light. Oropharynx without exudate. Nares clear. NECK: There is no JVP. No thyromegaly. CARDIOVASCULAR: Regular. There is no S3 or S4 gallop. LUNGS: Coarse with equal thoracic movement. ABDOMEN: Abdomen is soft, nondistended, nontender. EXTREMITIES: There is no clubbing, no cyanosis. NEUROLOGICAL: He is awake. He is alert. He is oriented. SKIN: Skin reveals no rashes or nodules. BACK: There is no CVA tenderness. There is no back deformity. LABORATORY DATA: Sodium 133, potassium 3.7, BUN 29, creatinine is 1.9. Hemoglobin 17, hematocrit 50, white count 12,000. Urinalysis reveals leukocyte esterase. Urine sodium is less than 13. Chest x-ray reveals cardiomegaly with no infiltrate. CT scan reveals enterocolitis. IMPRESSION: * Acute renal failure. * Hypovolemia. * Hyponatremia. * Volume depletion. * Diabetes mellitus. * Hypertension. PLAN: The patient was given 500 mL of bolus. He will continue with IV hydration of normal saline at 100 mL per hour. The patient's serum sodium of 133 is consistent with hypovolemia and hyponatremia secondary to the volume depletion. He will continue with the IV hydration. Creatinine will improve overnight. All labs can be repeated in the a.m. We will continue to follow closely. Electrolytes have all been aggressively repleted. The patient and family with multiple questions, all of which are all noted. The patient was started on antibiotics while we await culture results. I did discuss the case in detail with the primary team. We will follow closely. TID: [id number] RECEIPT: [id number]
[2025-07-01 20:40] VITALS: O2SAT 100
[2025-07-01] MEDS: SODIUM BICARBONATE 650 MG TAB PO SCH (20:47)
[2025-07-01] MEDS: SODIUM BICARB 50MEQ 50ML VIAL IV ONE (20:47)
[2025-07-01] MEDS: ZOSYN 3.375GM +NS 50ML IVPB SCH (20:57)
--- NOTE | 2025-07-01 23:28 | PN ---
FOLLOWUP PROGRESS NOTE SUBJECTIVE: This is a 69-year-old male with a history of diabetes mellitus and hypertension. The patient was initially admitted to the hospital with nausea, vomiting, and failure to thrive. The patient was found to have significant volume depletion as well as hyponatremia. The patient was started on IV hydration and urine output is somewhat improved. He continues to have significant renal dysfunction. The patient's urine did grow out gram-negative rods. He remains on the antibiotics and the patient is being seen as a followup visit for all of the above. REVIEW OF SYSTEMS: GENERAL: He is feeling improved. HEENT: No change in vision. No change in hearing. CARDIOVASCULAR: No current chest pain or palpitations. PULMONARY: No shortness of breath. GASTROINTESTINAL: He is tolerating a diet. MUSCULOSKELETAL: He complains of weakness. PHYSICAL EXAMINATION: VITAL SIGNS: Blood pressure is 98/76, pulse 90. He is afebrile. GENERAL: Chronically ill male, elderly lying in bed on the medical floor. HEENT: Head is atraumatic. Pupils are equal, round, and reactive to light. Oropharynx is without exudate. Nares clear. NECK: There is no JVP. There is no thyromegaly. No mass. CARDIOVASCULAR: Regular. There is no S3 or S4 gallop. LUNGS: Coarse with equal thoracic movement. ABDOMEN: Soft, nondistended, and nontender. EXTREMITIES: There is no clubbing or cyanosis. NEUROLOGICAL: He is awake. He is alert. LABORATORY DATA: Sodium 131, potassium 3.4, BUN 39, creatinine 2.5, hemoglobin 16, hematocrit 45, white blood cell count 13,000. Urine culture growing out gram-negative rods. IMPRESSION: * Acute on chronic renal failure. * Hyponatremia, hypovolemia. * Prostatitis. * Diabetes mellitus. PLAN: The patient's urine sodium of less than 20 is consistent with prerenal azotemia. The patient continues with the IV hydration. He will be given a bolus of 1 L of normal saline. We will continue to monitor closely. The patient now is tolerating some amount of a diet. I did discuss with the patient he cannot be discharged to home until his renal function improves. The patient's potassium will be aggressively repleted. We will follow the patient closely. TID: [id number] RECEIPT: [id number]
[2025-07-02] VITALS (25 sets, daily range): BP systolic 89–150; BP diastolic 45–89; PULSE 50–78; RESP 13–20; TEMP 95.8–97.8; O2SAT 96
[2025-07-02 05:12] LABS: C DIFFICILE TOXIN A/B Not Detected (Not Detected); ENTEROAGGREGATIVE ECOLI Not Detected (Not Detected); GIARDIA LAMBLIA Not Detected (Not Detected); PLESIOMONAS SHIGELOIDES Not Detected (Not Detected); SAPOVIRUS Not Detected (Not Detected); SHIGELLA/ENTEROINVASIVE E COLI Not Detected (Not Detected); VIBRIO Not Detected (Not Detected); VIBRIO CHOLERAE Not Detected (Not Detected)
[2025-07-02 05:13] LABS: IMMATURE GRANULOCYTE ABSOLUTE 0.07 K/uL (0-1); NUCLEATED RED BLOOD CELLS 0.0 % (0.0-0.19); PLATELET COUNT (AUTO) 138 K/uL (130-400); RED BLOOD CELL COUNT(AUTO) 4.54 MIL/uL (4.50-6.20); RED CELL DISTRIBUTION WIDTH 13.2 % (11.0-15.5); WHITE BLOOD COUNT (AUTO) 11.0 K/uL (4.8-10.8)
[2025-07-02 05:18] LABS: ASPARTATE AMINOTRANSFERASE 16.0 U/L (10-37); CREATININE 1.5 mg/dL (0.5-1.3); GLOMERULAR FILTR. RATE CALC 50.0 mL/min (>90); GLUCOSE,RANDOM 102.0 mg/dL (70-105); SODIUM SERUM 138.0 mmol/L (136-145); TOTAL PROTEIN, SERUM 6.1 g/dL (6.0-8.3); UREA NITROGEN, BLOOD 34.0 mg/dL (7-18)
--- NOTE | 2025-07-02 09:04 | NUR ---
round DR. DEUTSCH PRESENT ON UNIT. STATES PT IS CLEARED TO GO FROM HIS STANDPOINT.
--- NOTE | 2025-07-02 09:12 | CONS ---
INFECTIOUS DISEASE CONSULTATION DATE OF SERVICE: 07/01/2025 REQUESTING PHYSICIAN: Han Santoro MD REASON FOR CONSULTATION: Diarrhea and urinary tract infection. HISTORY OF PRESENT ILLNESS: This is a 69-year-old male with a history of CAD, myocardial infarction, diabetes mellitus, and obesity, who presented to the hospital with diarrhea of 5-day duration. The patient was having watery diarrhea, which is non-bloody. No nausea or vomiting. CT of the abdomen and pelvis done which shows enterocolitis. The patient has no history of fever or chills. Denies recent antibiotic use. Stool has been sent for Clostridium difficile, which came back negative. No dysuria. No renal symptoms. Denies sick contacts. No recent travel. The patient also complained of dysuria, urinary frequency. Urinalysis was positive and urine culture came back with gram-negative rods. No headache or dizziness. PAST MEDICAL HISTORY: * CAD. * * Obesity. * Diabetes mellitus. * Obstructive sleep apnea. PAST SURGICAL HISTORY: * CABG. * PCI. * Cholecystectomy. * Left shoulder surgery. ALLERGIES: No known drug allergies. CURRENT MEDICATIONS: Reviewed include: * Zosyn. * Lipitor. * Thiamine. * Zofran. * Insulin. SOCIAL HISTORY: Lives with . No alcohol, tobacco or illicit drug use. FAMILY HISTORY: Positive for diabetes mellitus. REVIEW OF SYSTEMS: CONSTITUTIONAL: Denies fever or chills. Positive for weakness. No weight loss or night sweats. EYES: No eye pain. No photophobia or diplopia. HENT: No sore throat. No rhinorrhea or earache. NECK: No neck pain or neck swelling. RESPIRATORY: No cough. No hemoptysis or pleuritic pain. CARDIOVASCULAR: No chest pain. No palpitation or orthopnea. GASTROINTESTINAL: Positive for diarrhea. No nausea, vomiting or abdominal pain. GENITOURINARY: No dysuria, urgency or urinary frequency. CENTRAL NERVOUS SYSTEM: No headache, dyspnea, or slurred speech. PSYCHIATRY: No depression, no suicidal ideation. MUSCULOSKELETAL: No joint pain or joint swelling. PHYSICAL EXAMINATION: GENERAL: On examination, elderly female, awake. VITAL SIGNS: Temperature 98.1, pulse 72, respirations 20, BP 112/72. EYES: No icterus. Pupils equal and reactive. HENT: No oral thrush seen. Moist oral mucosa. NECK: Supple. No JVD or thyromegaly. LUNGS: Good air entry. No rales, no rhonchi. CARDIOVASCULAR: S1 and S2. Regular. No murmur heard. ABDOMEN: Full, soft, nontender. Bowel sound is present. Obese. No organomegaly. CENTRAL NERVOUS SYSTEM: Awake, alert, oriented x 3. No focal deficits. SKIN: No rashes. LYMPHATIC: No peripheral lymphadenopathy. BACK: No deformity or pressure ulcer. MUSCULOSKELETAL: No joint swelling. No erythema or tenderness. LABORATORY DATA: Sodium 131, potassium 3.4, BUN 39, creatinine 2.5. WBC 13.9, hemoglobin 16.2, platelets 154. Urinalysis . Urine culture growing gram-negative rods. was negative. RADIOLOGY: CT of the abdomen results reviewed. ASSESSMENT: A 69-year-old male who presented with nausea, vomiting and diarrhea. Current problems include: * Non-infectious gastroenteritis. * Urinary tract infection. * Diabetes mellitus. * Dehydration. * Acute renal failure. * Obesity. * Obstructive sleep apnea. PLAN: * Send stool for PCR. * . * Follow up urine culture result. * Continue IV hydration. * Avoid nephrotoxic medication. * Continue anti-diabetics. * Continue antiemetics. * The patient will be followed up closely. Thank you for allowing me to participate in the care of this patient. TID: [id number] RECEIPT: [id number]
[2025-07-02] MEDS ORDERED: GLYCOPYRROLATE 0.2 MG/ML 5 ML VIAL ONE (11:12)
--- NOTE | 2025-07-02 12:20 | NUR ---
POST EGD/ COLONOSCOPY. ARRIVED TO UNIT. A&OX4. AT BEDSIDE. 02: 100% ON ROOM AIR. BP: 107/65. HR: 53. NO QUESTIONS AT THIS TIME. NON LABORED BREATHING.
[2025-07-02 13:16] LABS: NUCLEATED RED BLOOD CELLS 0.0 % (0.0-0.19); PLATELET COUNT (AUTO) 128.0 K/uL (130-400); RED BLOOD CELL COUNT(AUTO) 4.22 MIL/uL (4.50-6.20); RED CELL DISTRIBUTION WIDTH 13.6 % (11.0-15.5); WHITE BLOOD COUNT (AUTO) 8.7 K/uL (4.8-10.8)
[2025-07-02 13:19] LABS: ABG OXYGEN SATURATION 45.8 % (94.0-98.0); BASE EXCESS,VENOUS BLOOD GAS -1.2 (-2.0-3.0); HCO3,VENOUS BLOOD GAS 25.3 (22.0-29.0); PCO2,VENOUS BLOOD GAS 49 (38-54); PH,VENOUS BLOOD GAS 7.332 (7.320-7.430); PO2,VENOUS BLOOD GAS 27.1 mmHg (23.0-48.0); TEMPERATURE, CELSIUS BG 37.0 CELSIUS (35.5-37.0); VENT MODE, BG RA (ROOM AIR)
--- NOTE | 2025-07-02 13:19 | PN ---
[facility] PROGRESS NOTE Date of Service: Jul 02, 2025 Time of Service: 13:13 Attending doctor Gera SUBJECTIVE: [ 06/30 This is a 69-year-old male with underlying history of coronary artery disease with prior history of coronary artery bypass grafting in 2014, previous history of CT in 2019 status post PCI, hyperlipidemia, type 2 diabetes mellitus, history of FRANC, who presented to the ER for further evaluation of nausea, vomiting, and nonresolving multiple episodes of nonbloody diarrhea ongoing since , five days ago. Patient's is present at bedside and she reports that patient has been having intractable nausea and vomiting and multiple episodes of diarrhea. He has been using the restroom every 10-20 minutes in the diarrhea has been nonresolving. Denies any antibiotic use as outpatient. Denies significant abdominal pain. There is no blood in the stool either. Patient has been feeling dizzy since the symptoms started. He is supposed to be on valsartan 40 mg daily for blood pressure control as outpatient but he has been holding the medication over the last two days due to dizziness. Denies any syncopal falls. On presentation to the hospital, patient was noted to be afebrile with T-max of 97.7 F, heart rate of 88 and blood pressure of 107/78. [place] [address] with hemoglobin of 17.5, platelet count of 810006. BMP showed sodium of 133, potassium 3.7, chloride of 97, BUN of 29, creatinine 1.9, blood glucose of 148. Patient underwent further evaluation with noncontrast CT abdomen pelvis which showed mildly prominent fluid-filled loops of small and large bowel reflecting acute enterocolitis. Patient will be admitted to hospitalist service for further management of significant dehydration, acute kidney injury, nonresolving persistent infectious enterocolitis. Patient will receive IV fluids, IV antibiotics. Consultation with Nephrology and Infectious Disease will be requested this admission. Patient will undergo further infectious workup of the diarrhea. We will see how patient progresses in the next 48-72 hours. 07/01/25 patient was seen by nurse practitioner and physician during rounding in room 307. Patient's urinalysis came back positive for leukocytosis. Urine culture and blood culture was sent to the lab for further evaluation. Creatinine today has worsened up today is at 2.5 BUN41 GFR 38. As per laboratory worker patient will receive1 L bolus of normal saline. We will continue antibiotics Zosyn. C diff negative. Patient will also receive 40 mEq of potassium in the meantime. CT abdomen/pelvis showed enterocolitis. Renal ultrasound was negative. We are pending further recommendations as per ID. Home medication reconciled by [employer] SUPER[employer]OR. We will continue to monitor patient in the meantime. A.m. labs] 07/02/25 patient was seen by nurse practitioner physician during rounding. Patient is pending colonoscopy and EGD today. As per ID final urine culture grew Citrobacter koseri and E coli. Stool culture preliminary negative. Blood culture negative times 24 hours. As per ID continue Zosyn which is susceptible to both organism daughter it has been grown on culture. As per laboratory worker patient's urine sodium of less than 20 as consistent with prerenal azotemia. Continue IV hydration. Patient will also receive1 L of normal saline bolus. Patient can not be discharged home under his renal function improves. Continue to monitor patient in the meantime. A.m. labs. REVIEW OF SYSTEMS CONSTITUTIONAL: Denies fevers, chills, or night sweats. No unintentional weight loss reported. NEUROLOGICAL: Denies headache, amaurosis fugax, motor weakness, sensory deficit, vertigo/spinning sensation, gait abnormalities, or tremors. ENT: No hearing loss, otalgia, otorrhea, rhinitis, rhinorrhea, hoarseness, or sore throat. CARDIOVASCULAR: Denies any exertional angina, dyspnea on exertion, orthopnea, paroxysmal nocturnal dyspnea, palpitations, life-threatening arrhythmias, claudi cation. PULMONARY: Denies any shortness of breath, cough, phlegm/sputum, hemoptysis, pleuritic chest pain. SLEEP: Denies morning headaches, daytime somnolence or napping. Denies difficulty falling asleep, staying asleep, waking from sleep. Denies knowledge of snoring. GASTROINTESTINAL: nausea, vomiting, persistent non resolving diarrhea x 5 days GENITOURINARY: Denies frequency, urgency, nocturia, hematuria or incontinence (Storage/Irritative symptoms.) Low urinary stream, straining to void, urinary intermittency or hesitancy, splitting of the voiding stream, terminal dribbling. ENDOCRINOLOGIC: Denies polyuria, polydipsia, polyphagia or heat/cold intolerances. HEMATOLOGIC: Denies thrombophilia/previous clots, or coagulopathy/bleeding disorders. ONCOLOGIC: Denies personal history of malignancy. DERMATOLOGIC: Denies rashes or pruritus. PSYCHIATRIC: Denies any suicidal or homicidal ideation. Denies hallucinations. PHYSICAL EXAM GENERAL APPEARANCE: The patient is awake, alert, and oriented, in no acute cardiopulmonary distress. NEUROLOGICAL: Cranial nerves II-XII grossly intact. Motor is 5/5 in bilateral upper and lower extremities proximal to distal. No sensory deficits. HEENT: Face is symmetric. Pupils are equal and reactive. Extraocular movements are intact. NECK: Supple. No JVD. No thyromegaly. No submental, submandibular, pre- /postauricular, occipital or supraclavicular lymphadenopathy. CHEST: Normal chest expansion. No Telemetry. LUNGS: Absence of any rales, rhonchi or any wheezing. CARDIOVASCULAR: Regular. S1 and S2 normal. No appreciable rubs, murmurs or gallops. ABDOMEN: Soft, nontender, and nondistended. There is no rebound, voluntary guarding, or rigidity. : Deferred. No Andrews. EXTREMITIES: Non-edematous and not cyanotic. No clubbing. Good capillary refill. SKIN: No skin breakdown. Vital Signs (last 8hr) Date Time Temp Pulse Resp B/P (MAP) Pulse Ox O2 Delivery O2 Flow Rate FiO2 07/02/25 12:15 97.2 63 16 108/65 95 Room Air 07/02/25 12:10 97.2 63 16 106/60 95 Room Air 07/02/25 12:05 97.2 65 16 106/60 95 Room Air 07/02/25 12:00 97.2 71 15 103/60 95 Room Air 07/02/25 11:55 97.2 68 15 101/52 93 Room Air 07/02/25 11:50 97.2 74 15 103/51 96 Nasal Cannula 3.0 07/02/25 11:45 97.2 70 15 109/52 96 Nasal Cannula 3.0 07/02/25 11:40 97.2 56 15 102/53 96 Nasal Cannula 3.0 07/02/25 11:35 97.2 50 13 89/45 96 Nasal Cannula 3.0 07/02/25 11:11 Mask 10.0 07/02/25 11:11 Mask 07/02/25 08:00 97.9 78 18 123/74 99 Room Air LABS: Laboratory: Test 07/02/25 05:47 07/02/25 04:58 07/01/25 18:43 07/01/25 12:55 Range/Units Whole Blood Glucose 104 70-110 MG/DL White Blood Count 11.0 H 4.8-10.8 K/uL Red Blood Count 4.54 4.50-6.20 MIL/uL Hemoglobin 14.4 14.0-18.0 g/dL Hematocrit 41.0 L 42-54 % Mean Corpuscular Volume 90.3 79-99 fL Mean Corpuscular Hemoglobin 31.7 27.0-33.0 pg Mean Corpuscular Hemoglobin Concent 35.1 32.0-36.0 g/dL Red Cell Distribution Width 13.2 11.0-15.5 % Platelet Count 138 130-400 K/uL Mean Platelet Volume 12.0 H 7.5-10.5 fL Immature Granulocyte % (Auto) 0.6 0-1 % Neutrophils (%) (Auto) 62.1 40.0-77.0 % Lymphocytes (%) (Auto) 18.8 L 21.0-51.0 % Monocytes (%) (Auto) 11.6 3.0-13.0 % Eosinophils (%) (Auto) 6.4 0.0-8.0 % Basophils (%) (Auto) 0.5 0.0-5.0 % Neutrophils # (Auto) 6.8 1.8-7.7 K/uL Lymphocytes # (Auto) 2.1 1.0-4.8 K/uL Monocytes # (Auto) 1.3 H 0.1-1.0 K/uL Eosinophils # (Auto) 0.70 0.00-0.70 K/uL Basophils # (Auto) 0.05 0.00-0.20 K/uL Absolute Immature Granulocyte (auto 0.07 0-1 K/uL Nucleated Red Blood Cells 0.0 0.0-0.19 % Sodium Level 138 136-145 mmol/L Potassium Level 2.9 *L 3.5-5.1 mmol/L Chloride Level 101 101-111 mmol/L Carbon Dioxide Level 30 21-32 mmol/L Blood Urea Nitrogen 34 H 7-18 mg/dL Creatinine 1.5 H 0.5-1.3 mg/dL Glomerular Filtration Rate Calc 50 >90 mL/min Random Glucose 102 70-105 mg/dL Total Calcium 8.5 8.5-10.1 mg/dL Magnesium Level 1.70 L 1.80-2.40 mg/dL Total Bilirubin 0.6 # 0.2-1.0 mg/dL Aspartate Amino Transf (AST/SGOT) 16 10-37 U/L Alanine Aminotransferase (ALT/SGPT) 12 12-78 U/L Alkaline Phosphatase 76 50-136 U/L Total Protein 6.1 6.0-8.3 g/dL Albumin 3.0 L 3.5-5.0 g/dL Blood Gas Specimen Type Arterial Arterial Blood pH 7.315 L 7.350-7.450 Arterial Blood Partial Pressure CO2 47 35-48 mmHg Arterial Blood Partial Pressure O2 < 45.0 *L 83.0-108.0 mmHg Arterial Blood HCO3 23.3 21.0-28.0 mmol/L Arterial Blood Oxygen Saturation 28.1 L 94.0-98.0 % Arterial Blood Base Excess -3.1 L -2.0-3.0 mmol/L Blood Gas Temperature 37.0 35.5-37.0 CELSIUS Blood Gas Vent Mode RA ROOM AIR FiO2 21.0 % Blood Gas Specimen Comment RN Red Blood Cell Morphology See comments Test 06/30/25 14:00 Range/Units Urine Color YELLOW YELLOW Urine Appearance CLOUDY H CLEAR Urine pH 5.5 5.0-8.0 Urine Specific Manter 1.027 1.001-1.031 Urine Protein 50 H NEGATIVE mg/dL Urine Glucose (UA) NEGATIVE NEGATIVE mg/dL Urine Ketones NEGATIVE NEGATIVE mg/dL Urine Occult Blood NEGATIVE NEGATIVE Urine Nitrate NEGATIVE NEGATIVE Urine Bilirubin 0.5 H NEGATIVE mg/dL Urine Urobilinogen 2.0 H 0.2-1.0 mg/dL Urine Leukocyte Esterase 500 H NEGATIVE Floridalma/uL Urine RBC 2-5 H 0-1 /HPF Urine WBC 51-100 H 0-1 /HPF Urine WBC Clumps (Auto) FEW 0-1 /HPF Urine Squamous Epithelial Cells FEW 0-2 /HPF Urine Other Crystals (Auto) 1 None Seen /HPF Urine Bacteria FEW None Seen /HPF Urine Hyaline Casts 11-25 H 0-1 /LPF /LPF Urine Other Casts 5 None Seen /LPF Urine Random Creatinine 625.29 H 30-135 mg/dL Urine Random Sodium < 13 L 40-220 mmol/l Stool Cyclospora cayetanensis (PCR) Not Detected Not Detected Stool Astrovirus (PCR) Not Detected Not Detected Stool Cryptosporidium PCR Not Detected Not Detected Stool E. coli Shiga Toxins (PCR) Not Detected Not Detected Stool E coli O157 PCR Not applicable Not Detected Stool Enterotoxigenic Ecoli PCR Not Detected Not Detected Stool Enteropathogenic E. coli (PCR Detected H Not Detected Stool Entamoeba histolytica (PCR) Not Detected Not Detected Stool Giardia Lamblia PCR Not Detected Not Detected Stool Plesiomonas shigelloides (PCR Not Detected Not Detected Stool Sapovirus (PCR) Not Detected Not Detected Stool Shigella/EIEC (PCR) Not Detected Not Detected Stool Yersinia enterocolitica (PCR) Not Detected Not Detected Stool Vibrio (PCR) Not Detected Not Detected Stool Vibrio cholerae (PCR) Not Detected Not Detected Stool Enteroaggregative E coli PCR Not Detected Not Detected Stool Norovirus GI/GII PCR Not Detected Not Detected Adenovirus Types 40, 41 Not Detected Not Detected Campylobacter (PCR)(LAB) Not Detected Not Detected C. difficile Antigen and Toxins A,B See comments NEG Rotavirus A (PCR)(LAB) Not Detected Not Detected Salmonella (PCR) Not Detected Not Detected Current Medications Medications (Trade) Dose Ordered Sig/Carroll Route PRN Reason Start Time Stop Time Status Last Admin Dose Admin Acetaminophen (TYLenol 325MG TAB) 650 mg Q6H PRN PO MILD PAIN (1-3) 06/30/25 13:00 07/30/25 12:59 06/30/25 14:47 650 MG Atorvastatin Calcium (LIPItor 40MG) 40 mg HS PO 07/01/25 21:00 07/31/25 20:59 07/01/25 20:48 40 MG Carvedilol (Coreg 6.25MG) 6.25 mg BID PO 07/01/25 09:00 07/01/25 09:05 DC Ceftriaxone Sodium (ROCEphine 1G INJ) 1 gm Q12H IVPB 06/30/25 13:00 06/30/25 16:31 DC 06/30/25 13:45 1 GM Dextrose (D50w) 50 ml AD PRN IV HYPOGLYCEMIA PROTOCOL 06/30/25 14:00 07/30/25 13:59 Glucagon (Glucagon 1mg Kit) 1 mg AD PRN IM HYPOGLYCEMIA PROTOCOL 06/30/25 14:00 07/30/25 13:59 Hydralazine HCl (APRESOLine 20MG INJ) 5 mg Q6H PRN IV ADMINISTER FOR SBP > 160 07/01/25 20:30 07/31/25 20:29 Insulin Human Regular (humuLIN R 100 UNIT/ML 3ML) INSULIN SLIDING SCAL... ACHS SQ 06/30/25 16:30 07/30/25 16:29 07/01/25 16:22 2 UNIT Lactobacillus Rhamnosus ([facility]) 1 each BID PO 07/01/25 13:00 07/31/25 12:59 07/01/25 20:47 1 EACH Losartan Potassium (CozAAR 25MG TAB) 25 mg DAILY PO 07/02/25 09:00 07/01/25 09:05 DC Magnesium Sulfate 50 ml @ 0 mls/hr PROTOCOL PRN IV LOW MG 07/01/25 18:00 07/31/25 17:59 Memantine (NAmenDA 5 MG TAB) 5 mg BID PO 07/01/25 09:00 07/31/25 08:59 07/01/25 20:48 5 MG Metronidazole/ Sodium Chloride 100 ml @ 100 mls/hr Q8H IVPB 06/30/25 22:30 06/30/25 16:31 DC Metronidazole/ Sodium Chloride 100 ml @ 100 mls/hr TID IVPB 06/30/25 14:00 06/30/25 14:02 DC 06/30/25 13:45 100 MLS/HR Morphine Sulfate (morPHINE 4MG SYG) 4 mg ONCE STAT IVP 06/30/25 08:47 06/30/25 08:49 DC 06/30/25 09:02 4 MG Ondansetron HCl (zoFRAN 4MG INJ) 4 mg ONCE STAT IVP 06/30/25 08:47 06/30/25 08:49 DC 06/30/25 09:02 4 MG Ondansetron HCl (zoFRAN 4MG INJ) 4 mg Q6H PRN IVP NAUSEA/VOMITING 06/30/25 13:00 07/30/25 12:59 Pantoprazole Sodium (PROTonix 40MG INJ) 40 mg Q24H IVP 06/30/25 13:00 07/30/25 12:59 07/02/25 12:34 40 MG Piperacillin Sod/ Tazobactam Sod (Zosyn 3.375gm+NS 50ml) 3.375 gm BID IVPB 07/01/25 21:00 07/10/25 17:59 07/01/25 20:57 3.375 GM Piperacillin Sod/ Tazobactam Sod (Zosyn 3.375gm+NS 50ml) 3.375 gm Q8H IVPB 06/30/25 18:00 07/01/25 09:32 DC 07/01/25 09:21 3.375 GM Potassium Chloride 100 ml @ 100 mls/hr AD PRN IV POTASSIUM PROTOCOL 07/01/25 18:00 07/31/25 17:59 07/02/25 05:45 100 MLS/HR Potassium Chloride (K-Dur/Klor-Con 20meq) 20 meq AD PRN PO POTASSIUM PROTOCOL 07/01/25 18:00 07/31/25 17:59 Potassium Chloride (KCl 10% Elixir 20meq/15ml) 20 meq AD PRN PO POTASSIUM PROTOCOL 07/01/25 18:00 07/31/25 17:59 Ranolazine (Ranexa) 1,000 mg Q12H9 PO 07/01/25 09:00 07/31/25 08:59 07/01/25 20:48 1,000 MG Sertraline HCl (ZOloft 50 mg tab) 25 mg DAILY PO 07/02/25 09:00 08/01/25 08:59 07/02/25 12:34 25 MG Sodium Bicarbonate (Sodium Bicarbonate) 650 mg TID PO 07/01/25 21:00 07/31/25 20:59 07/01/25 20:47 650 MG Sodium Chloride 1,000 ml @ 100 mls/hr Q10H IV 06/30/25 13:00 07/30/25 12:59 07/02/25 06:12 100 MLS/HR Sodium Chloride (NS 50ml) 50 ml AD IV 06/30/25 18:00 07/01/25 08:50 DC Spironolactone (Aldactone 25mg) 25 mg DAILY PO 07/01/25 09:00 07/01/25 09:05 DC Tamsulosin HCl (FloMAX) 0.4 mg DAILY PO 07/01/25 09:00 07/31/25 08:59 07/02/25 12:34 0.4 MG Tamsulosin HCl (FloMAX) 0.4 mg HS PO 07/01/25 21:00 07/01/25 09:06 DC Thiamine HCl (Vitamin B-1) 100 mg Q24H IVP 06/30/25 14:30 07/30/25 14:29 07/01/25 13:45 100 MG Vitamin B Complex/ Vit C/Folic Acid (Nephrovite Tablet) 1 cap DAILY PO 07/01/25 09:00 07/31/25 08:59 07/02/25 12:34 1 CAP DIAGNOSTICS / RADIOLOGY: [ ] ASSESSMENT: Infectious enterocolitis, POA Fxkquzkv-[id number]-aajvdd dehydration, POA 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 As per ID final urine culture grew Citrobacter koseri and E coli. Stool culture preliminary negative. Blood culture negative times 24 hours. As per ID continue Zosyn which is susceptible to both organism daughter it has been grown on culture. As per laboratory worker patient's urine sodium of less than 20 as consistent with prerenal azotemia. Continue IV hydration. Patient will also receive1 L of normal saline bolus. Patient can not be discharged home under his renal function improves. Continue to monitor patient in the meantime. A.m. labs. We will continue to hold valsartan due to soft blood pressure as well as TATE, we will obtain a renal ultrasound, we will send further workup of TATE including FENA testing, obtain urinalysis to rule out urinary tract infection Patient will be placed on fall precautions, we will start patient on a lactose- free diet as well Home medication reconciled by [employer]PERVISOR 07/01/2025 We will avoid NSAIDs, IV contrast All labs will be repeated in the morning ATTESTATION BY PHYSICIAN I have seen and examined the patient. I reviewed the documentation, medical decision making, and treatment plan as noted by the mid-level provider above. I agree with the findings and plan of care. BELKIS MORGAN MD, KATARZYNA B [facility] Jul 02, 2025 13:19
[2025-07-02 13:40] LABS: ASPARTATE AMINOTRANSFERASE 18.0 U/L (10-37); CREATININE 1.1 mg/dL (0.5-1.3); GLOMERULAR FILTR. RATE CALC 73.0 mL/min (>90); GLUCOSE,RANDOM 97.0 mg/dL (70-105); SODIUM SERUM 139.0 mmol/L (136-145); TOTAL PROTEIN, SERUM 5.7 g/dL (6.0-8.3); UREA NITROGEN, BLOOD 29.0 mg/dL (7-18)
[2025-07-02] MEDS ORDERED: SODIUM BICARB 50MEQ 50ML VIAL IV ONE (14:00)
[2025-07-02] MEDS: PoTASSium chloRIDE 20MEQ ER 20 MEQ ERTAB PO ONE ×3 (14:13→21:58)
[2025-07-02] MEDS: SODIUM BICARBONATE 650 MG TAB PO ONE (14:14)
[2025-07-02] MEDS ORDERED: MAGNESIUM 2GM PREMIX 50ML 50 ML IV SCH (14:30)
[2025-07-02] MEDS: MAGNESIUM 2GM PREMIX 50ML 50 ML IV PRN (16:39)
[2025-07-02] MEDS: SODIUM BICARBONATE 650 MG TAB PO SCH (16:39)
--- NOTE | 2025-07-02 21:15 | PN ---
INFECTIOUS DISEASE PROGRESS NOTE Date of Service: Jul 02, 2025 SUBJECTIVE: This is a 69-year-old male patient who was seen and examined at bedside in room 307. Patient is status post colonoscopy and EGD today with findings of internal hemorrhoids, gastric polyps and gastritis. Patient denying abdominal pain at this time. The final urine culture results came back positive for Citrobacter koseri and E coli. Patient continues on Zosyn IV. Remains afebrile, temperature is 97.5 and the WBC has trended down to 8.7. We will continue to follow patient's care. PHYSICAL EXAM EYES: Anicteric. Pupils equal and reactive. HENT: No oral thrush seen, moist Oral mucosa. NECK: Supple, no JVD or thyromegaly. LUNGS: Good air entry. No rales, no rhonchi. CARDIOVASCULAR: S1, S2 regular. No murmur heard. ABDOMEN: Soft, non tender, bowel sounds present. CENTRAL NERVOUS SYSTEM: Awake, alert, oriented x 3. SKIN: No rashes, no swelling. LYMPHATICS: No peripheral lymphadenopathy. MUSCULOSKELETAL: No joint swelling, erythema or tenderness. EXTREMITIES: No cyanosis or clubbing. BACK: No deformity, no pressure ulcer. GENITOURINARY: No dysuria or hematuria. Vital Sign (Last 12 Hours) 07/02/25 07/02/25 07/02/25 07/02/25 11:11 11:11 11:35 11:40 Temp 97.2 97.2 Pulse 50 56 Resp 13 15 B/P (MAP) 89/45 102/53 Pulse Ox 96 96 O2 Delivery Mask Mask Nasal Cannula Nasal Cannula O2 Flow Rate 10.0 3.0 3.0 FiO2 28 28 07/02/25 07/02/25 07/02/25 07/02/25 11:45 11:50 11:55 12:00 Temp 97.2 97.2 97.2 97.2 Pulse 70 74 68 71 Resp 15 15 15 15 B/P (MAP) 109/52 103/51 101/52 103/60 Pulse Ox 96 96 93 95 O2 Delivery Nasal Cannula Nasal Cannula Room Air Room Air O2 Flow Rate 3.0 3.0 FiO2 28 28 21 21 07/02/25 07/02/25 07/02/25 07/02/25 12:05 12:10 12:15 12:20 Temp 97.2 97.2 97.2 97.5 Pulse 65 63 63 53 Resp 16 16 16 18 B/P (MAP) 106/60 106/60 108/65 107/65 Pulse Ox 95 95 95 100 O2 Delivery Room Air Room Air Room Air Room Air FiO2 21 21 21 07/02/25 07/02/25 07/02/25 07/02/25 13:41 13:58 14:11 14:26 Pulse 55 72 53 54 B/P (MAP) 106/71 92/50 114/74 117/69 Pulse Ox 97 94 97 98 07/02/25 07/02/25 07/02/25 07/02/25 14:57 15:03 16:00 17:00 Pulse 51 69 61 55 B/P (MAP) 150/89 111/70 113/73 104/58 Pulse Ox 97 96 97 95 07/02/25 07/02/25 07/02/25 18:00 19:00 20:00 Temp 97.5 Pulse 67 54 62 Resp 18 B/P (MAP) 102/74 98/58 103/62 Pulse Ox 99 96 96 O2 Delivery Room Air Intake & Output (last 24hrs) 07/01/25 07/01/25 07/02/25 15:00 23:00 07:00 Intake Total 2091.0 ml Balance 2091.0 ml LABS: Laboratory: Test 07/02/25 20:17 07/02/25 14:13 07/02/25 13:17 07/02/25 13:07 Range/Units Whole Blood Glucose 90 70-110 MG/DL Potassium Level 3.5 3.5-5.1 mmol/L Magnesium Level 2.10 1.80-2.40 mg/dL Blood Gas Specimen Type Venous Arterial Blood Oxygen Saturation 45.8 L 94.0-98.0 % Venous Blood pH 7.332 7.320-7.430 Venous Blood pCO2 at Patient Temp 49 38-54 Venous Blood pO2 at Patient Temp 27.1 23.0-48.0 mmHg Venous Blood HCO3 25.3 22.0-29.0 Venous Blood Base Excess -1.2 -2.0-3.0 Blood Gas Temperature 37.0 35.5-37.0 CELSIUS Blood Gas Vent Mode RA ROOM AIR FiO2 21.0 % Blood Gas Specimen Comment RARM,RODERICK White Blood Count 8.7 4.8-10.8 K/uL Red Blood Count 4.22 L 4.50-6.20 MIL/uL Hemoglobin 13.6 L 14.0-18.0 g/dL Hematocrit 38.6 L 42-54 % Mean Corpuscular Volume 91.5 79-99 fL Mean Corpuscular Hemoglobin 32.2 27.0-33.0 pg Mean Corpuscular Hemoglobin Concent 35.2 32.0-36.0 g/dL Red Cell Distribution Width 13.6 11.0-15.5 % Platelet Count 128 L 130-400 K/uL Mean Platelet Volume 11.9 H 7.5-10.5 fL Nucleated Red Blood Cells 0.0 0.0-0.19 % Sodium Level 139 136-145 mmol/L Chloride Level 103 101-111 mmol/L Carbon Dioxide Level 30 21-32 mmol/L Blood Urea Nitrogen 29 H 7-18 mg/dL Creatinine 1.1 0.5-1.3 mg/dL Glomerular Filtration Rate Calc 73 >90 mL/min Random Glucose 97 70-105 mg/dL Total Calcium 8.2 L 8.5-10.1 mg/dL Total Bilirubin 0.5 0.2-1.0 mg/dL Aspartate Amino Transf (AST/SGOT) 18 10-37 U/L Alanine Aminotransferase (ALT/SGPT) 15 # 12-78 U/L Alkaline Phosphatase 68 50-136 U/L Total Protein 5.7 L 6.0-8.3 g/dL Albumin 2.8 L 3.5-5.0 g/dL Test 07/02/25 04:58 07/01/25 18:43 07/01/25 12:55 Range/Units Immature Granulocyte % (Auto) 0.6 0-1 % Neutrophils (%) (Auto) 62.1 40.0-77.0 % Lymphocytes (%) (Auto) 18.8 L 21.0-51.0 % Monocytes (%) (Auto) 11.6 3.0-13.0 % Eosinophils (%) (Auto) 6.4 0.0-8.0 % Basophils (%) (Auto) 0.5 0.0-5.0 % Neutrophils # (Auto) 6.8 1.8-7.7 K/uL Lymphocytes # (Auto) 2.1 1.0-4.8 K/uL Monocytes # (Auto) 1.3 H 0.1-1.0 K/uL Eosinophils # (Auto) 0.70 0.00-0.70 K/uL Basophils # (Auto) 0.05 0.00-0.20 K/uL Absolute Immature Granulocyte (auto 0.07 0-1 K/uL Arterial Blood pH 7.315 L 7.350-7.450 Arterial Blood Partial Pressure CO2 47 35-48 mmHg Arterial Blood Partial Pressure O2 < 45.0 *L 83.0-108.0 mmHg Arterial Blood HCO3 23.3 21.0-28.0 mmol/L Arterial Blood Base Excess -3.1 L -2.0-3.0 mmol/L Red Blood Cell Morphology See comments DIAGNOSTICS / RADIOLOGY: PATIENT: ARIANE GUPTA ACCT: [id number] LOC: [facility] U: [id number] AGE/SX: 69/M ROOM: [facility] RE06/30/[address]: SEEMA ORTIZ MD : [id number] BED: 1 DIS: STATUS: ADM IN TLOC: SPEC: [id number] OPAL: 06/30/25 STATUS: COMP REQ: [id number] RECD: 07/01/[address]: SEEMA ORTIZ MD SOURCE: [facility] [place]: 07/01/[address]: SANG LEON MD SPDESC: CLEAN CAT REBECA DEUTSCH MD, CHRISTOPHER MD LANDERO, SAMUEL N MD ORDERED: AERO ID & SENS Procedure Result Sanam Date-Time AEROBIC ID & SENSITIVITIES Final 07/02/25 MRL COLONY DESCRIPTION: DAY 1: COLONY COUNT: >100,000 CFU/ML GRAM NEGATIVE RODS IDENTIFICATION AND SENSITIVITY TO FOLLOW [facility] KOSERI ESCHERICHIA COLI CIT KOSERI E COLI M.I.C. RX M.I.C. RX --------- ---- --------- ---- AMPICILLIN <=8 S AZTREONAM <=4 S <=4 S CEFAZOLIN <=2 S <=2 S CEFTAZIDIME <=1 S CEFTAZIDIME/AVIBACTAM <=8 S <=8 S CEFTRIAXONE <=1 S GENTAMICIN <=2 S <=2 S LEVOFLOXACIN <=0.5 S <=0.5 S NITROFURANTOIN <=32 S <=32 S MEROPENEM <=1 S <=1 S PIPERACILLIN/TAZOBACTAM <=8 S <=8 S TRIMETHOPRIM/SUFLAMETHOXAZOLE <=2/38 S <=2/38 S ASSESSMENT: Noninfectious gastroenteritis, , status post colonoscopy with findings of inter nal hemorrhoids and EGD with findings of gastritis and gastric polyp. Urinary tract infection with Citrobacter koseri and E coli. Leukocytosis. Acute renal failure possible secondary to dehydration. Hypokalemia. Diabetes mellitus. PLAN: Continue Zosyn IV. Continue GI prophylaxis. Avoid nephrotoxic medications. Continue antidiabetics. Continue IV fluids. This case was reviewed and discussed with my supervising physician Dr. Leon and the above assessment and plan was formulated and agreed upon. ATTESTATION BY PHYSICIAN I have seen and examined the patient. I reviewed the documentation, medical decision making, and treatment plan as noted by the mid-level provider above. I agree with the findings and plan of care. SANG LEON MD, MIRTA L [facility] Jul 02, 2025 21:15
[2025-07-03] VITALS (7 sets, daily range): BP systolic 98–126; BP diastolic 64–77; PULSE 50–64; RESP 17–18; TEMP 97.2–98; O2SAT 97–98
--- NOTE | 2025-07-03 00:42 | PN ---
FOLLOWUP PROGRESS NOTE SUBJECTIVE: A 69-year-old male with a history of diabetes mellitus and hypertension. He presented to the hospital with persistent nausea, vomiting, and diarrhea. The patient with significant volume depletion. He was started on IV hydration and the patient's renal function has greatly improved. The patient is scheduled for EGD and colonoscopy later today and he is being seen as a followup visit for all above. REVIEW OF SYSTEMS: CONSTITUTIONAL: He is feeling much improved. HEENT: No change in vision. No change in hearing. CARDIOVASCULAR: There are no current chest pains or palpitations. PULMONARY: No shortness of breath. GASTROINTESTINAL: He is now tolerating a diet. MUSCULOSKELETAL: Complains of weakness. PHYSICAL EXAMINATION: VITAL SIGNS: Blood pressure 123/74, pulse in the 70s. GENERAL: He is a chronically ill male lying in bed on the medical floor. HEENT: Head is atraumatic. Pupils are equal, roving to light. Oropharynx is without exudate. Nares clear. NECK: There is no JVP. There is no thyromegaly. No mass. CARDIOVASCULAR: Regular. There is no S3 or S4 gallop. LUNGS: Coarse with equal thoracic movement. ABDOMEN: Soft, nondistended, and nontender. EXTREMITIES: No clubbing or cyanosis. NEUROLOGICAL: He is awake and alert. LABORATORY DATA: Sodium 138, potassium 2.9, BUN 34, creatinine 1.5, hemoglobin 14, and hematocrit 41. IMPRESSION: * Acute renal failure. * Volume depletion. * Hypertension. * Electrolyte abnormalities. PLAN: The patient's renal function is greatly improved. The patient's GI workup is ongoing. He is now tolerating a diet without difficulty. Potassium has been aggressively repleted. The patient's IV fluids can be discontinued once he started back on a regular diet. We will continue to follow closely. Once the patient is discharged, the patient can follow up at [facility]. TID: [id number] RECEIPT: [id number]
[2025-07-03 04:41] LABS: IMMATURE GRANULOCYTE ABSOLUTE 0.06 K/uL (0-1); NUCLEATED RED BLOOD CELLS 0.0 % (0.0-0.19); PLATELET COUNT (AUTO) 106 K/uL (130-400); RED BLOOD CELL COUNT(AUTO) 3.96 MIL/uL (4.50-6.20); RED CELL DISTRIBUTION WIDTH 13.5 % (11.0-15.5); WHITE BLOOD COUNT (AUTO) 8.3 K/uL (4.8-10.8)
[2025-07-03 04:56] LABS: ASPARTATE AMINOTRANSFERASE 19.0 U/L (10-37); CREATININE 0.9 mg/dL (0.5-1.3); GLOMERULAR FILTR. RATE CALC 93.0 mL/min (>90); GLUCOSE,RANDOM 86.0 mg/dL (70-105); SODIUM SERUM 142.0 mmol/L (136-145); TOTAL PROTEIN, SERUM 5.4 g/dL (6.0-8.3); UREA NITROGEN, BLOOD 21.0 mg/dL (7-18)
[2025-07-03] MEDS: PoTASSium chloRIDE 20MEQ ER 20 MEQ ERTAB PO PRN (09:45)
[2025-07-03 12:45] LABS: NUCLEATED RED BLOOD CELLS 0.0 % (0.0-0.19); PLATELET COUNT (AUTO) 124.0 K/uL (130-400); RED BLOOD CELL COUNT(AUTO) 4.37 MIL/uL (4.50-6.20); RED CELL DISTRIBUTION WIDTH 13.5 % (11.0-15.5); WHITE BLOOD COUNT (AUTO) 9.4 K/uL (4.8-10.8)
--- NOTE | 2025-07-03 14:41 | PN ---
[facility] PROGRESS NOTE Date of Service: Jul 03, 2025 Time of Service: 14:[address] Morgan SUBJECTIVE: [ 06/30 This is a 69-year-old male with underlying history of coronary artery disease with prior history of coronary artery bypass grafting in 2014, previous history of LA in 2019 status post PCI, hyperlipidemia, type 2 diabetes mellitus, history of FRANC, who presented to the ER for further evaluation of nausea, vomiting, and nonresolving multiple episodes of nonbloody diarrhea ongoing since , five days ago. Patient's is present at bedside and she reports that patient has been having intractable nausea and vomiting and multiple episodes of diarrhea. He has been using the restroom every 10-20 minutes in the diarrhea has been nonresolving. Denies any antibiotic use as outpatient. Denies significant abdominal pain. There is no blood in the stool either. Patient has been feeling dizzy since the symptoms started. He is supposed to be on valsartan 40 mg daily for blood pressure control as outpatient but he has been holding the medication over the last two days due to dizziness. Denies any syncopal falls. On presentation to the hospital, patient was noted to be afebrile with T-max of 97.7 F, heart rate of 88 and blood pressure of 107/78. [place] [address] with hemoglobin of 17.5, platelet count of 169148. BMP showed sodium of 133, potassium 3.7, chloride of 97, BUN of 29, creatinine 1.9, blood glucose of 148. Patient underwent further evaluation with noncontrast CT abdomen pelvis which showed mildly prominent fluid-filled loops of small and large bowel reflecting acute enterocolitis. Patient will be admitted to hospitalist service for further management of significant dehydration, acute kidney injury, nonresolving persistent infectious enterocolitis. Patient will receive IV fluids, IV antibiotics. Consultation with Nephrology and Infectious Disease will be requested this admission. Patient will undergo further infectious workup of the diarrhea. We will see how patient progresses in the next 48-72 hours. 07/01/25 patient was seen by nurse practitioner and physician during rounding in room 307. Patient's urinalysis came back positive for leukocytosis. Urine culture and blood culture was sent to the lab for further evaluation. Creatinine today has worsened up today is at 2.5 BUN41 GFR 38. As per substance abuse prevention coordinator patient will receive1 L bolus of normal saline. We will continue antibiotics Zosyn. C diff negative. Patient will also receive 40 mEq of potassium in the meantime. CT abdomen/pelvis showed enterocolitis. Renal ultrasound was negative. We are pending further recommendations as per ID. Home medication reconciled by SECURED ENTRANCE MONITOR. We will continue to monitor patient in the meantime. A.m. labs] 07/02/25 patient was seen by nurse practitioner physician during rounding. Patient is pending colonoscopy and EGD today. As per ID final urine culture grew Citrobacter koseri and E coli. Stool culture preliminary negative. Blood culture negative times 24 hours. As per ID continue Zosyn which is susceptible to both organism daughter it has been grown on culture. As per substance abuse prevention coordinator patient's urine sodium of less than 20 as consistent with prerenal azotemia. Continue IV hydration. Patient will also receive1 L of normal saline bolus. Patient can not be discharged home under his renal function improves. Continue to monitor patient in the meantime. A.m. labs. 07/03/25 patient was seen by nurse practitioner and physician during rounding in room 307 Patient is s/p colonoscopy which showed internal hemorrhoids and gastric polyps which worsened for the biopsy. EGD showed gastritis. Patient was cleared by the substance abuse prevention coordinator to be discharged home discontinue fluids. As per GI patient also was cleared to be discharged home. As per ID today is the last day of antibiotics. Patient was also cleared after last dose of antibiotics to be discharged home. We anticipate to discharge patient within 24 hours manager care tomorrow once antibiotics are completed as per ID recommendations. We will continue to monitor patient in the meantime. A.m. labs. REVIEW OF SYSTEMS CONSTITUTIONAL: Denies fevers, chills, or night sweats. No unintentional weight loss reported. NEUROLOGICAL: Denies headache, amaurosis fugax, motor weakness, sensory deficit, vertigo/spinning sensation, gait abnormalities, or tremors. ENT: No hearing loss, otalgia, otorrhea, rhinitis, rhinorrhea, hoarseness, or sore throat. CARDIOVASCULAR: Denies any exertional angina, dyspnea on exertion, orthopnea, paroxysmal nocturnal dyspnea, palpitations, life-threatening arrhythmias, claudication. PULMONARY: Denies any shortness of breath, cough, phlegm/sputum, hemoptysis, pleuritic chest pain. SLEEP: Denies morning headaches, daytime somnolence or napping. Denies difficulty falling asleep, staying asleep, waking from sleep. Denies knowledge of snoring. GASTROINTESTINAL: Denies any nausea, vomiting or diarrhea GENITOURINARY: Denies frequency, urgency, nocturia, hematuria or incontinence (Storage/Irritative symptoms.) Low urinary stream, straining to void, urinary intermittency or hesitancy, splitting of the voiding stream, terminal dribbling. ENDOCRINOLOGIC: Denies polyuria, polydipsia, polyphagia or heat/cold intolerances. HEMATOLOGIC: Denies thrombophilia/previous clots, or coagulopathy/bleeding disorders. ONCOLOGIC: Denies personal history of malignancy. DERMATOLOGIC: Denies rashes or pruritus. PSYCHIATRIC: Denies any suicidal or homicidal ideation. Denies hallucinations. PHYSICAL EXAM GENERAL APPEARANCE: The patient is awake, alert, and oriented, in no acute cardiopulmonary distress. NEUROLOGICAL: Cranial nerves II-XII grossly intact. Motor is 5/5 in bilateral upper and lower extremities proximal to distal. No sensory deficits. HEENT: Face is symmetric. Pupils are equal and reactive. Extraocular movements are intact. NECK: Supple. No JVD. No thyromegaly. No submental, submandibular, pre-/postauricular, occipital or supraclavicular lymphadenopathy. CHEST: Normal chest expansion. No Telemetry. LUNGS: Absence of any rales, rhonchi or any wheezing. CARDIOVASCULAR: Regular. S1 and S2 normal. No appreciable rubs, murmurs or gallops. ABDOMEN: Soft, nontender, and nondistended. There is no rebound, voluntary guarding, or rigidity. : Deferred. No Andrews. EXTREMITIES: Non-edematous and not cyanotic. No clubbing. Good capillary refill. SKIN: No skin breakdown. Vital Signs (last 8hr) Date Time Temp Pulse Resp B/P (MAP) Pulse Ox O2 Delivery O2 Flow Rate FiO2 07/03/25 12:00 97.2 55 18 98/64 98 Room Air 07/03/25 08:10 98.1 57 18 119/67 98 Room Air LABS: Laboratory: Test 07/03/25 12:58 07/03/25 12:34 07/03/25 04:25 07/02/25 13:17 Range/Units Whole Blood Glucose 105 70-110 MG/DL White Blood Count 9.4 4.8-10.8 K/uL Red Blood Count 4.37 L 4.50-6.20 MIL/uL Hemoglobin 14.0 14.0-18.0 g/dL Hematocrit 39.9 L 42-54 % Mean Corpuscular Volume 91.3 79-99 fL Mean Corpuscular Hemoglobin 32.0 27.0-33.0 pg Mean Corpuscular Hemoglobin Concent 35.1 32.0-36.0 g/dL Red Cell Distribution Width 13.5 11.0-15.5 % Platelet Count 124 L 130-400 K/uL Mean Platelet Volume 12.2 H 7.5-10.5 fL Nucleated Red Blood Cells 0.0 0.0-0.19 % Immature Granulocyte % (Auto) 0.7 0-1 % Neutrophils (%) (Auto) 54.4 40.0-77.0 % Lymphocytes (%) (Auto) 21.6 21.0-51.0 % Monocytes (%) (Auto) 8.9 3.0-13.0 % Eosinophils (%) (Auto) 14.0 H 0.0-8.0 % Basophils (%) (Auto) 0.4 0.0-5.0 % Neutrophils # (Auto) 4.5 1.8-7.7 K/uL Lymphocytes # (Auto) 1.8 1.0-4.8 K/uL Monocytes # (Auto) 0.7 0.1-1.0 K/uL Eosinophils # (Auto) 1.16 H 0.00-0.70 K/uL Basophils # (Auto) 0.03 0.00-0.20 K/uL Absolute Immature Granulocyte (auto 0.06 0-1 K/uL Sodium Level 142 136-145 mmol/L Potassium Level 3.6 3.5-5.1 mmol/L Chloride Level 107 101-111 mmol/L Carbon Dioxide Level 29 21-32 mmol/L Blood Urea Nitrogen 21 H 7-18 mg/dL Creatinine 0.9 0.5-1.3 mg/dL Glomerular Filtration Rate Calc 93 >90 mL/min Random Glucose 86 70-105 mg/dL Total Calcium 8.2 L 8.5-10.1 mg/dL Magnesium Level 2.10 1.80-2.40 mg/dL Total Bilirubin 0.6 0.2-1.0 mg/dL Aspartate Amino Transf (AST/SGOT) 19 10-37 U/L Alanine Aminotransferase (ALT/SGPT) 15 12-78 U/L Alkaline Phosphatase 65 50-136 U/L Total Protein 5.4 L 6.0-8.3 g/dL Albumin 2.7 L 3.5-5.0 g/dL Blood Gas Specimen Type Venous Arterial Blood Oxygen Saturation 45.8 L 94.0-98.0 % Venous Blood pH 7.332 7.320-7.430 Venous Blood pCO2 at Patient Temp 49 38-54 Venous Blood pO2 at Patient Temp 27.1 23.0-48.0 mmHg Venous Blood HCO3 25.3 22.0-29.0 Venous Blood Base Excess -1.2 -2.0-3.0 Blood Gas Temperature 37.0 35.5-37.0 CELSIUS Blood Gas Vent Mode RA ROOM AIR FiO2 21.0 % Blood Gas Specimen Comment RARM,RODERICK Test 07/01/25 18:43 Range/Units Arterial Blood pH 7.315 L 7.350-7.450 Arterial Blood Partial Pressure CO2 47 35-48 mmHg Arterial Blood Partial Pressure O2 < 45.0 *L 83.0-108.0 mmHg Arterial Blood HCO3 23.3 21.0-28.0 mmol/L Arterial Blood Base Excess -3.1 L -2.0-3.0 mmol/L Current Medications Medications (Trade) Dose Ordered Sig/Carroll Route PRN Reason Start Time Stop Time Status Last Admin Dose Admin Acetaminophen (TYLenol 325MG TAB) 650 mg Q6H PRN PO MILD PAIN (1-3) 06/30/25 13:00 07/30/25 12:59 06/30/25 14:47 650 MG Atorvastatin Calcium (LIPItor 40MG) 40 mg HS PO 07/01/25 21:00 07/31/25 20:59 07/02/25 21:55 40 MG Carvedilol (Coreg 6.25MG) 6.25 mg BID PO 07/01/25 09:00 07/01/25 09:05 DC Ceftriaxone Sodium (ROCEphine 1G INJ) 1 gm Q12H IVPB 06/30/25 13:00 06/30/25 16:31 DC 06/30/25 13:45 1 GM Dextrose (D50w) 50 ml AD PRN IV HYPOGLYCEMIA PROTOCOL 06/30/25 14:00 07/30/25 13:59 Glucagon (Glucagon 1mg Kit) 1 mg AD PRN IM HYPOGLYCEMIA PROTOCOL 06/30/25 14:00 07/30/25 13:59 Hydralazine HCl (APRESOLine 20MG INJ) 5 mg Q6H PRN IV ADMINISTER FOR SBP > 160 07/01/25 20:30 07/31/25 20:29 Insulin Human Regular (humuLIN R 100 UNIT/ML 3ML) INSULIN SLIDING SCAL... ACHS SQ 06/30/25 16:30 07/30/25 16:29 07/01/25 16:22 2 UNIT Lactobacillus Rhamnosus ([facility] [employer]) 1 each BID PO 07/01/25 13:00 07/31/25 12:59 07/03/25 09:44 1 EACH Losartan Potassium (CozAAR 25MG TAB) 25 mg DAILY PO 07/02/25 09:00 07/01/25 09:05 DC Magnesium Sulfate 50 ml @ 0 mls/hr PROTOCOL IV 07/02/25 14:30 07/02/25 14:13 DC Magnesium Sulfate 50 ml @ 0 mls/hr PROTOCOL PRN IV LOW MG 07/01/25 18:00 07/31/25 17:59 07/02/25 16:39 25 MLS/HR Memantine (NAmenDA 5 MG TAB) 5 mg BID PO 07/01/25 09:00 07/31/25 08:59 07/03/25 09:44 5 MG Metronidazole/ Sodium Chloride 100 ml @ 100 mls/hr Q8H IVPB 06/30/25 22:30 06/30/25 16:31 DC Metronidazole/ Sodium Chloride 100 ml @ 100 mls/hr TID IVPB 06/30/25 14:00 06/30/25 14:02 DC 06/30/25 13:45 100 MLS/HR Morphine Sulfate (morPHINE 4MG SYG) 4 mg ONCE STAT IVP 06/30/25 08:47 06/30/25 08:49 DC 06/30/25 09:02 4 MG Ondansetron HCl (zoFRAN 4MG INJ) 4 mg ONCE STAT IVP 06/30/25 08:47 06/30/25 08:49 DC 06/30/25 09:02 4 MG Ondansetron HCl (zoFRAN 4MG INJ) 4 mg Q6H PRN IVP NAUSEA/VOMITING 06/30/25 13:00 07/30/25 12:59 Pantoprazole Sodium (PROTonix 40MG INJ) 40 mg Q24H IVP 06/30/25 13:00 07/30/25 12:59 07/02/25 12:34 40 MG Piperacillin Sod/ Tazobactam Sod (Zosyn 3.375gm+NS 50ml) 3.375 gm BID IVPB 07/01/25 21:00 07/10/25 17:59 07/03/25 09:42 3.375 GM Piperacillin Sod/ Tazobactam Sod (Zosyn 3.375gm+NS 50ml) 3.375 gm Q8H IVPB 06/30/25 18:00 07/01/25 09:32 DC 07/01/25 09:21 3.375 GM Potassium Chloride 100 ml @ 100 mls/hr AD PRN IV POTASSIUM PROTOCOL 07/01/25 18:00 07/31/25 17:59 07/02/25 05:45 100 MLS/HR Potassium Chloride (K-Dur/Klor-Con 20meq) 20 meq AD PRN PO POTASSIUM PROTOCOL 07/01/25 18:00 07/31/25 17:59 07/03/25 09:45 20 MEQ Potassium Chloride (KCl 10% Elixir 20meq/15ml) 20 meq AD PRN PO POTASSIUM PROTOCOL 07/01/25 18:00 07/31/25 17:59 Ranolazine (Ranexa) 1,000 mg Q12H9 PO 07/01/25 09:00 07/31/25 08:59 07/03/25 09:44 1,000 MG Sertraline HCl (ZOloft 50 mg tab) 25 mg DAILY PO 07/02/25 09:00 08/01/25 08:59 07/03/25 09:44 25 MG Sodium Bicarbonate (Sodium Bicarbonate) 650 mg QID PO 07/02/25 17:00 08/01/25 16:59 07/03/25 09:44 650 MG Sodium Bicarbonate (Sodium Bicarbonate) 650 mg TID PO 07/01/25 21:00 07/02/25 14:04 DC 07/01/25 20:47 650 MG Sodium Chloride 1,000 ml @ 100 mls/hr Q10H IV 06/30/25 13:00 07/03/25 09:03 DC 07/02/25 22:14 100 MLS/HR Sodium Chloride (NS 50ml) 50 ml AD IV 06/30/25 18:00 07/01/25 08:50 DC Spironolactone (Aldactone 25mg) 25 mg DAILY PO 07/01/25 09:00 07/01/25 09:05 DC Tamsulosin HCl (FloMAX) 0.4 mg DAILY PO 07/01/25 09:00 07/31/25 08:59 07/03/25 09:44 0.4 MG Tamsulosin HCl (FloMAX) 0.4 mg HS PO 07/01/25 21:00 07/01/25 09:06 DC Thiamine HCl (Vitamin B-1) 100 mg Q24H IVP 06/30/25 14:30 07/30/25 14:29 07/02/25 14:13 100 MG Vitamin B Complex/ Vit C/Folic Acid (Nephrovite Tablet) 1 cap DAILY PO 07/01/25 09:00 07/31/25 08:59 07/03/25 09:44 1 CAP DIAGNOSTICS / RADIOLOGY: [ ] ASSESSMENT: Infectious enterocolitis, POA [id number] dehydration, POA 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 EGD showed gastritis. Patient was cleared by the substance abuse prevention coordinator to be discharged home discontinue fluids. As per GI patient also was cleared to be discharged home. As per ID today is the last day of antibiotics. Patient was also cleared after last dose of antibiotics to be discharged home. We anticipate to discharge patient within 24 hours manager care tomorrow once antibiotics are completed as per ID recommendations. We will continue to monitor patient in the meantime. A.m. labs. We will continue to hold valsartan due to soft blood pressure as well as TATE, we will obtain a renal ultrasound, we will send further workup of TATE including FENA testing, obtain urinalysis to rule out urinary tract infection Patient will be placed on fall precautions, we will start patient on a lactose- free diet as well Home medication reconciled by SECURED ENTRANCE MONITOR 07/01/2025 We will avoid NSAIDs, IV contrast All labs will be repeated in the morning ATTESTATION BY PHYSICIAN I have seen and examined the patient. I reviewed the documentation, medical decision making, and treatment plan as noted by the mid-level provider above. I agree with the findings and plan of care. BELKIS MORGAN MD, [facility] Jul 03, 2025 14:41
--- NOTE | 2025-07-03 14:49 | PN ---
INFECTIOUS DISEASE PROGRESS NOTE Date of Service: Jul 03, 2025 SUBJECTIVE: This is a 69-year-old male patient who was seen and examined at bedside in room 307. Patient remains afebrile, temperature is 98.1 and a WBC of 9.4. From Infectious Disease standpoint patient can be discharged on cephalexin x 7 days when ready to discharge. Prescription was written. PHYSICAL EXAM EYES: Anicteric. Pupils equal and reactive. HENT: No oral thrush seen, moist Oral mucosa. NECK: Supple, no JVD or thyromegaly. LUNGS: Good air entry. No rales, no rhonchi. CARDIOVASCULAR: S1, S2 regular. No murmur heard. ABDOMEN: Soft, non tender, bowel sounds present. CENTRAL NERVOUS SYSTEM: Awake, alert, oriented x 3. SKIN: No rashes, no swelling. LYMPHATICS: No peripheral lymphadenopathy. MUSCULOSKELETAL: No joint swelling, erythema or tenderness. EXTREMITIES: No cyanosis or clubbing. BACK: No deformity, no pressure ulcer. GENITOURINARY: No dysuria or hematuria. Vital Sign (Last 12 Hours) 07/03/25 07/03/25 07/03/25 04:00 08:10 12:00 Temp 97.5 98.1 97.2 Pulse 56 57 55 Resp 17 18 18 B/P (MAP) 106/65 119/67 98/64 Pulse Ox 98 98 98 O2 Delivery Room Air Room Air Room Air Intake & Output (last 24hrs) 07/02/25 07/02/25 07/03/25 15:00 23:00 07:00 Intake Total 25.0 ml 141.0 ml 1200.0 ml Output Total 0 ml 50 ml 450 ml Balance 25.0 ml 91.0 ml 750.0 ml LABS: Laboratory: Test 07/03/25 12:58 07/03/25 12:34 07/03/25 04:25 07/02/25 13:17 Range/Units Whole Blood Glucose 105 70-110 MG/DL White Blood Count 9.4 4.8-10.8 K/uL Red Blood Count 4.37 L 4.50-6.20 MIL/uL Hemoglobin 14.0 14.0-18.0 g/dL Hematocrit 39.9 L 42-54 % Mean Corpuscular Volume 91.3 79-99 fL Mean Corpuscular Hemoglobin 32.0 27.0-33.0 pg Mean Corpuscular Hemoglobin Concent 35.1 32.0-36.0 g/dL Red Cell Distribution Width 13.5 11.0-15.5 % Platelet Count 124 L 130-400 K/uL Mean Platelet Volume 12.2 H 7.5-10.5 fL Nucleated Red Blood Cells 0.0 0.0-0.19 % Immature Granulocyte % (Auto) 0.7 0-1 % Neutrophils (%) (Auto) 54.4 40.0-77.0 % Lymphocytes (%) (Auto) 21.6 21.0-51.0 % Monocytes (%) (Auto) 8.9 3.0-13.0 % Eosinophils (%) (Auto) 14.0 H 0.0-8.0 % Basophils (%) (Auto) 0.4 0.0-5.0 % Neutrophils # (Auto) 4.5 1.8-7.7 K/uL Lymphocytes # (Auto) 1.8 1.0-4.8 K/uL Monocytes # (Auto) 0.7 0.1-1.0 K/uL Eosinophils # (Auto) 1.16 H 0.00-0.70 K/uL Basophils # (Auto) 0.03 0.00-0.20 K/uL Absolute Immature Granulocyte (auto 0.06 0-1 K/uL Sodium Level 142 136-145 mmol/L Potassium Level 3.6 3.5-5.1 mmol/L Chloride Level 107 101-111 mmol/L Carbon Dioxide Level 29 21-32 mmol/L Blood Urea Nitrogen 21 H 7-18 mg/dL Creatinine 0.9 0.5-1.3 mg/dL Glomerular Filtration Rate Calc 93 >90 mL/min Random Glucose 86 70-105 mg/dL Total Calcium 8.2 L 8.5-10.1 mg/dL Magnesium Level 2.10 1.80-2.40 mg/dL Total Bilirubin 0.6 0.2-1.0 mg/dL Aspartate Amino Transf (AST/SGOT) 19 10-37 U/L Alanine Aminotransferase (ALT/SGPT) 15 12-78 U/L Alkaline Phosphatase 65 50-136 U/L Total Protein 5.4 L 6.0-8.3 g/dL Albumin 2.7 L 3.5-5.0 g/dL Blood Gas Specimen Type Venous Arterial Blood Oxygen Saturation 45.8 L 94.0-98.0 % Venous Blood pH 7.332 7.320-7.430 Venous Blood pCO2 at Patient Temp 49 38-54 Venous Blood pO2 at Patient Temp 27.1 23.0-48.0 mmHg Venous Blood HCO3 25.3 22.0-29.0 Venous Blood Base Excess -1.2 -2.0-3.0 Blood Gas Temperature 37.0 35.5-37.0 CELSIUS Blood Gas Vent Mode RA ROOM AIR FiO2 21.0 % Blood Gas Specimen Comment RODERICK MIX Test 07/01/25 18:43 Range/Units Arterial Blood pH 7.315 L 7.350-7.450 Arterial Blood Partial Pressure CO2 47 35-48 mmHg Arterial Blood Partial Pressure O2 < 45.0 *L 83.0-108.0 mmHg Arterial Blood HCO3 23.3 21.0-28.0 mmol/L Arterial Blood Base Excess -3.1 L -2.0-3.0 mmol/L ASSESSMENT: Noninfectious gastroenteritis, , status post colonoscopy with findings of internal hemorrhoids and EGD with findings of gastritis and gastric polyp. Urinary tract infection with Citrobacter koseri and E coli. Leukocytosis, resolved. Acute renal failure possible secondary to dehydration, resolving. Hypokalemia. Diabetes mellitus. PLAN: From Infectious Disease standpoint patient can be discharged on cephalexin x 7 days when ready to discharge. Prescription was written. This case was reviewed and discussed with my supervising physician Dr. Leon and the above assessment and plan was formulated and agreed upon. ATTESTATION BY PHYSICIAN I have seen and examined the patient. I reviewed the documentation, medical decision making, and treatment plan as noted by the mid-level provider above. I agree with the findings and plan of care. SANG LEON MD, [facility] Jul 03, 2025 14:49
--- NOTE | 2025-07-03 16:47 | PN ---
GASTROENTEROLOGY PROGRESS NOTE Date of Visit: Jul 03, 2025 Time of Visit: 16:46 Events / Notes: This is a 69-year-old male with past medical history of CAD with CABG, previous [place], hyperlipidemia, type 2 diabetes who presented due to nausea, vomiting and diarrhea ongoing since . He reports over 15 episodes of diarrhea in a day. Denies any contributing factors. Imaging revealing enterocolitis. No recent EGD or colonoscopy. No acute events overnight. EGD revealing gastritis and colonoscopy with no bleeding or masses. Review of Systems: CONSTITUTIONAL: No malaise or change in sensation of wellbeing. ENMT: No rhinorrhea, otorrhea, sinus pain, ear ache. CARDIOVASCULAR: No angina, palpitations, orthopnea or paroxysmal dyspnea. RESPIRATORY: No SOB. GASTROINTESTINAL: No abdominal pain, nausea, vomiting, diarrhea, hematemesis, melena or change in the patient's habitual bowel movements consistency/number. GENITOURINARY: No dysuria, hematuria or change in bladder continence. MUSCULOSKELETAL: No new muscle pain or decrease in muscular strength. No new joint swelling, redness or tenderness. SKIN: No new rash. Physical Exam: GEN: Awake, alert, oriented in person, time and place, and in no acute distress. HEENT: No sinus tenderness. Tympanic membranes were not examined. No rhinorrhea. Oral pharyngeal mucosa is pink, moist and within normal limits. Neck is supple with no cervical lymphadenopathy, thyromegaly or JVD. CHEST: Inspection, palpation and percussion of the chest were unremarkable. Lung auscultation revealed normal breath sounds bilaterally. CARDIAC: PMI is within normal limits. Heart sounds are regular. Normal S1, S2. N o gallop or murmur. ABD: Soft, non-tender and not distended. No peritoneal signs on palpation. No organomegaly. Normal bowel sounds. EXT: No cyanosis or clubbing. No edema. SKIN: Intact. No rashes. JOINTS: No evidence of synovitis or acute arthritis. NEURO: Alert and oriented to name, place and person. Cranial nerve examination is unremarkable. No focal motor deficits. Normal speech. Gait is normal. Stre ngth is normal. Vital Signs (last 8hr) Date Time Temp Pulse Resp B/P (MAP) Pulse Ox O2 Delivery O2 Flow Rate FiO2 07/03/25 12:00 97.2 55 18 98/64 98 Room Air Laboratory: [ ] Laboratory: Test 07/03/25 12:58 07/03/25 12:34 07/03/25 04:25 07/02/25 13:17 Range/Units Whole Blood Glucose 105 70-110 MG/DL White Blood Count 9.4 4.8-10.8 K/uL Red Blood Count 4.37 L 4.50-6.20 MIL/uL Hemoglobin 14.0 14.0-18.0 g/dL Hematocrit 39.9 L 42-54 % Mean Corpuscular Volume 91.3 79-99 fL Mean Corpuscular Hemoglobin 32.0 27.0-33.0 pg Mean Corpuscular Hemoglobin Concent 35.1 32.0-36.0 g/dL Red Cell Distribution Width 13.5 11.0-15.5 % Platelet Count 124 L 130-400 K/uL Mean Platelet Volume 12.2 H 7.5-10.5 fL Nucleated Red Blood Cells 0.0 0.0-0.19 % Immature Granulocyte % (Auto) 0.7 0-1 % Neutrophils (%) (Auto) 54.4 40.0-77.0 % Lymphocytes (%) (Auto) 21.6 21.0-51.0 % Monocytes (%) (Auto) 8.9 3.0-13.0 % Eosinophils (%) (Auto) 14.0 H 0.0-8.0 % Basophils (%) (Auto) 0.4 0.0-5.0 % Neutrophils # (Auto) 4.5 1.8-7.7 K/uL Lymphocytes # (Auto) 1.8 1.0-4.8 K/uL Monocytes # (Auto) 0.7 0.1-1.0 K/uL Eosinophils # (Auto) 1.16 H 0.00-0.70 K/uL Basophils # (Auto) 0.03 0.00-0.20 K/uL Absolute Immature Granulocyte (auto 0.06 0-1 K/uL Sodium Level 142 136-145 mmol/L Potassium Level 3.6 3.5-5.1 mmol/L Chloride Level 107 101-111 mmol/L Carbon Dioxide Level 29 21-32 mmol/L Blood Urea Nitrogen 21 H 7-18 mg/dL Creatinine 0.9 0.5-1.3 mg/dL Glomerular Filtration Rate Calc 93 >90 mL/min Random Glucose 86 70-105 mg/dL Total Calcium 8.2 L 8.5-10.1 mg/dL Magnesium Level 2.10 1.80-2.40 mg/dL Total Bilirubin 0.6 0.2-1.0 mg/dL Aspartate Amino Transf (AST/SGOT) 19 10-37 U/L Alanine Aminotransferase (ALT/SGPT) 15 12-78 U/L Alkaline Phosphatase 65 50-136 U/L Total Protein 5.4 L 6.0-8.3 g/dL Albumin 2.7 L 3.5-5.0 g/dL Blood Gas Specimen Type Venous Arterial Blood Oxygen Saturation 45.8 L 94.0-98.0 % Venous Blood pH 7.332 7.320-7.430 Venous Blood pCO2 at Patient Temp 49 38-54 Venous Blood pO2 at Patient Temp 27.1 23.0-48.0 mmHg Venous Blood HCO3 25.3 22.0-29.0 Venous Blood Base Excess -1.2 -2.0-3.0 Blood Gas Temperature 37.0 35.5-37.0 CELSIUS Blood Gas Vent Mode RA ROOM AIR FiO2 21.0 % Blood Gas Specimen Comment RARM,RODERICK Test 07/01/25 18:43 Range/Units Arterial Blood pH 7.315 L 7.350-7.450 Arterial Blood Partial Pressure CO2 47 35-48 mmHg Arterial Blood Partial Pressure O2 < 45.0 *L 83.0-108.0 mmHg Arterial Blood HCO3 23.3 21.0-28.0 mmol/L Arterial Blood Base Excess -3.1 L -2.0-3.0 mmol/L Current Medications Medications (Trade) Dose Ordered Sig/Carroll Route PRN Reason Start Time Stop Time Status Last Admin Dose Admin Acetaminophen (TYLenol 325MG TAB) 650 mg Q6H PRN PO MILD PAIN (1-3) 06/30/25 13:00 07/30/25 12:59 06/30/25 14:47 650 MG Atorvastatin Calcium (LIPItor 40MG) 40 mg HS PO 07/01/25 21:00 07/31/25 20:59 07/02/25 21:55 40 MG Carvedilol (Coreg 6.25MG) 6.25 mg BID PO 07/01/25 09:00 07/01/25 09:05 DC Ceftriaxone Sodium (ROCEphine 1G INJ) 1 gm Q12H IVPB 06/30/25 13:00 06/30/25 16:31 DC 06/30/25 13:45 1 GM Dextrose (D50w) 50 ml AD PRN IV HYPOGLYCEMIA PROTOCOL 06/30/25 14:00 07/30/25 13:59 Glucagon (Glucagon 1mg Kit) 1 mg AD PRN IM HYPOGLYCEMIA PROTOCOL 06/30/25 14:00 07/30/25 13:59 Hydralazine HCl (APRESOLine 20MG INJ) 5 mg Q6H PRN IV ADMINISTER FOR SBP > 160 07/01/25 20:30 07/31/25 20:29 Insulin Human Regular (humuLIN R 100 UNIT/ML 3ML) INSULIN SLIDING SCAL... ACHS SQ 06/30/25 16:30 07/30/25 16:29 07/01/25 16:22 2 UNIT Lactobacillus Rhamnosus ([facility] [employer]) 1 each BID PO 07/01/25 13:00 07/31/25 12:59 07/03/25 09:44 1 EACH Losartan Potassium (CozAAR 25MG TAB) 25 mg DAILY PO 07/02/25 09:00 07/01/25 09:05 DC Magnesium Sulfate 50 ml @ 0 mls/hr PROTOCOL IV 07/02/25 14:30 07/02/25 14:13 DC Magnesium Sulfate 50 ml @ 0 mls/hr PROTOCOL PRN IV LOW MG 07/01/25 18:00 07/31/25 17:59 07/02/25 16:39 25 MLS/HR Memantine (NAmenDA 5 MG TAB) 5 mg BID PO 07/01/25 09:00 07/31/25 08:59 07/03/25 09:44 5 MG Metronidazole/ Sodium Chloride 100 ml @ 100 mls/hr Q8H IVPB 06/30/25 22:30 06/30/25 16:31 DC Metronidazole/ Sodium Chloride 100 ml @ 100 mls/hr TID IVPB 06/30/25 14:00 06/30/25 14:02 DC 06/30/25 13:45 100 MLS/HR Morphine Sulfate (morPHINE 4MG SYG) 4 mg ONCE STAT IVP 06/30/25 08:47 06/30/25 08:49 DC 06/30/25 09:02 4 MG Ondansetron HCl (zoFRAN 4MG INJ) 4 mg ONCE STAT IVP 06/30/25 08:47 06/30/25 08:49 DC 06/30/25 09:02 4 MG Ondansetron HCl (zoFRAN 4MG INJ) 4 mg Q6H PRN IVP NAUSEA/VOMITING 06/30/25 13:00 07/30/25 12:59 Pantoprazole Sodium (PROTonix 40MG INJ) 40 mg Q24H IVP 06/30/25 13:00 07/30/25 12:59 07/03/25 14:56 40 MG Piperacillin Sod/ Tazobactam Sod (Zosyn 3.375gm+NS 50ml) 3.375 gm BID IVPB 07/01/25 21:00 07/10/25 17:59 07/03/25 09:42 3.375 GM Piperacillin Sod/ Tazobactam Sod (Zosyn 3.375gm+NS 50ml) 3.375 gm Q8H IVPB 06/30/25 18:00 07/01/25 09:32 DC 07/01/25 09:21 3.375 GM Potassium Chloride 100 ml @ 100 mls/hr AD PRN IV POTASSIUM PROTOCOL 07/01/25 18:00 07/31/25 17:59 07/02/25 05:45 100 MLS/HR Potassium Chloride (K-Dur/Klor-Con 20meq) 20 meq AD PRN PO POTASSIUM PROTOCOL 07/01/25 18:00 07/31/25 17:59 07/03/25 09:45 20 MEQ Potassium Chloride (KCl 10% Elixir 20meq/15ml) 20 meq AD PRN PO POTASSIUM PROTOCOL 07/01/25 18:00 07/31/25 17:59 Ranolazine (Ranexa) 1,000 mg Q12H9 PO 07/01/25 09:00 07/31/25 08:59 07/03/25 09:44 1,000 MG Sertraline HCl (ZOloft 50 mg tab) 25 mg DAILY PO 07/02/25 09:00 08/01/25 08:59 07/03/25 09:44 25 MG Sodium Bicarbonate (Sodium Bicarbonate) 650 mg QID PO 07/02/25 17:00 08/01/25 16:59 07/03/25 14:56 650 MG Sodium Bicarbonate (Sodium Bicarbonate) 650 mg TID PO 07/01/25 21:00 07/02/25 14:04 DC 07/01/25 20:47 650 MG Sodium Chloride 1,000 ml @ 100 mls/hr Q10H IV 06/30/25 13:00 07/03/25 09:03 DC 07/02/25 22:14 100 MLS/HR Sodium Chloride (NS 50ml) 50 ml AD IV 06/30/25 18:00 07/01/25 08:50 DC Spironolactone (Aldactone 25mg) 25 mg DAILY PO 07/01/25 09:00 07/01/25 09:05 DC Tamsulosin HCl (FloMAX) 0.4 mg DAILY PO 07/01/25 09:00 07/31/25 08:59 07/03/25 09:44 0.4 MG Tamsulosin HCl (FloMAX) 0.4 mg HS PO 07/01/25 21:00 07/01/25 09:06 DC Thiamine HCl (Vitamin B-1) 100 mg Q24H IVP 06/30/25 14:30 07/30/25 14:29 07/03/25 14:57 100 MG Vitamin B Complex/ Vit C/Folic Acid (Nephrovite Tablet) 1 cap DAILY PO 07/01/25 09:00 07/31/25 08:59 07/03/25 09:44 1 CAP Diagnostics / Radiology: [COPY/PASTE HERE IF NO REPORTS PLEASE DELETE SECTION] Assessment: Gastritis N/V Diarrhea CAD DM Plan: Continue GI prophylaxis Advance diet as tolerated Avoid NSAIDs Antireflux measures Monitor H&H and transfuse as needed Call with questions, concerns or change in clinical status Patient to follow-up at clinic post discharge Thank you for this consult ANA ALEJANDRE MEAL MILLER Jul 03, 2025 16:46
[2025-07-04] VITALS: BP 136/68; PULSE 58; RESP 17; TEMP 97.7
--- NOTE | 2025-07-04 00:28 | PN ---
FOLLOWUP PROGRESS NOTE SUBJECTIVE: A 69-year-old male with a history of diabetes mellitus and hypertension. The patient presented to the hospital with significant nausea, vomiting, and diarrhea. The patient with volume depletion. The patient was started on IV hydration. Creatinine is much improved. He did undergo EGD and colonoscopy, results of which are all noted. The patient is tolerating a diet and he is being seen as a followup visit for all of the above. REVIEW OF SYSTEMS: GENERAL: The patient is feeling much improved. HEENT: No change in vision. No change in hearing. No nasal discharge. No sore throat. CARDIOVASCULAR: There is no current chest pain or palpitations. PULMONARY: He has no shortness of breath. GASTROINTESTINAL: As described above. MUSCULOSKELETAL: Complains of weakness. PHYSICAL EXAMINATION: VITAL SIGNS: Blood pressure is 119/67 and pulse is in the 50s. GENERAL: He is a chronically ill male lying in bed on the medical floor. HEENT: Head is atraumatic. Pupils are equal, round, reactive to light. Oropharynx is without exudate. Nares are clear. NECK: There is no JVP. There is no thyromegaly. No mass. CARDIOVASCULAR: Regular. There is no S3 or S4 gallop. LUNGS: Coarse with equal thoracic movement. ABDOMEN: Abdomen is soft, nondistended, nontender. EXTREMITIES: No clubbing, no cyanosis. NEUROLOGICAL: He is awake. He is alert. He is at his baseline. LABORATORY DATA: Hemoglobin 12, hematocrit 36, sodium 142, BUN 21, and creatinine 0.9. IMPRESSION: * Acute renal failure. * Volume depletion. * Hypertension. * Prostatitis. PLAN: The patient's renal function is much improved. The patient is now tolerating a diet without difficulty. The patient's IV fluids can safely be discontinued. The patient will be started on a heart-healthy diet and we will continue to follow closely. IV fluids can safely be discontinued. Once the patient is discharged, the patient can follow up in the [facility]. TID: [id number] RECEIPT: [id number]
[2025-07-04 04:00] VITALS: BP 127/76; PULSE 54; RESP 18; TEMP 97.8
[2025-07-04 07:13] LABS: IMMATURE GRANULOCYTE ABSOLUTE 0.12 K/uL (0-1); NUCLEATED RED BLOOD CELLS 0.0 % (0.0-0.19); PLATELET COUNT (AUTO) 123 K/uL (130-400); RED BLOOD CELL COUNT(AUTO) 4.47 MIL/uL (4.50-6.20); RED CELL DISTRIBUTION WIDTH 13.6 % (11.0-15.5); WHITE BLOOD COUNT (AUTO) 10.8 K/uL (4.8-10.8)
[2025-07-04 07:52] LABS: ASPARTATE AMINOTRANSFERASE 22.0 U/L (10-37); CREATININE 0.8 mg/dL (0.5-1.3); GLOMERULAR FILTR. RATE CALC 96.0 mL/min (>90); GLUCOSE,RANDOM 92.0 mg/dL (70-105); SODIUM SERUM 142.0 mmol/L (136-145); TOTAL PROTEIN, SERUM 6.4 g/dL (6.0-8.3); UREA NITROGEN, BLOOD 13.0 mg/dL (7-18)
[2025-07-04 08:00] VITALS: BP 108/72; PULSE 61; RESP 20; TEMP 98
[2025-07-04 11:43] VITALS: BP 123/74; PULSE 57; RESP 18; TEMP 97.3
--- NOTE | 2025-07-04 12:57 | PN ---
GASTROENTEROLOGY PROGRESS NOTE Date of Visit: Jul 04, 2025 Time of Visit: 12:56 Events / Notes: This is a 69-year-old male with past medical history of CAD with CABG, previous [place], hyperlipidemia, type 2 diabetes who presented due to nausea, vomiting and diarrhea ongoing since . He reports over 15 episodes of diarrhea in a day. Denies any contributing factors. Imaging revealing enterocolitis. No recent EGD or colonoscopy. No acute events overnight. EGD revealing gastritis and colonoscopy with no bleeding or masses. Review of Systems: CONSTITUTIONAL: No malaise or change in sensation of wellbeing. ENMT: No rhinorrhea, otorrhea, sinus pain, ear ache. CARDIOVASCULAR: No angina, palpitations, orthopnea or paroxysmal dyspnea. RESPIRATORY: No SOB. GASTROINTESTINAL: No abdominal pain, nausea, vomiting, diarrhea, hematemesis, melena or change in the patient's habitual bowel movements consistency/number. GENITOURINARY: No dysuria, hematuria or change in bladder continence. MUSCULOSKELETAL: No new muscle pain or decrease in muscular strength. No new joint swelling, redness or tenderness. SKIN: No new rash. Physical Exam: GEN: Awake, alert, oriented in person, time and place, and in no acute distress. HEENT: No sinus tenderness. Tympanic membranes were not examined. No rhinorrhea. Oral pharyngeal mucosa is pink, moist and within normal limits. Neck is supple with no cervical lymphadenopathy, thyromegaly or JVD. CHEST: Inspection, palpation and percussion of the chest were unremarkable. Lung auscultation revealed normal breath sounds bilaterally. CARDIAC: PMI is within normal limits. Heart sounds are regular. Normal S1, S2. N o gallop or murmur. ABD: Soft, non-tender and not distended. No peritoneal signs on palpation. No organomegaly. Normal bowel sounds. EXT: No cyanosis or clubbing. No edema. SKIN: Intact. No rashes. JOINTS: No evidence of synovitis or acute arthritis. NEURO: Alert and oriented to name, place and person. Cranial nerve examination is unremarkable. No focal motor deficits. Normal speech. Gait is normal. Stre ngth is normal. Vital Signs (last 8hr) Date Time Temp Pulse Resp B/P (MAP) Pulse Ox O2 Delivery O2 Flow Rate FiO2 07/04/25 11:43 97.3 57 18 123/74 95 07/04/25 08:14 Room Air* 0 21 07/04/25 08:00 98.1 61 20 108/72 98 Room Air Laboratory: [ ] Laboratory: Test 07/04/25 10:54 07/04/25 06:37 07/02/25 13:17 Range/Units Whole Blood Glucose 114 H 70-110 MG/DL White Blood Count 10.8 4.8-10.8 K/uL Red Blood Count 4.47 L 4.50-6.20 MIL/uL Hemoglobin 14.3 14.0-18.0 g/dL Hematocrit 41.4 L 42-54 % Mean Corpuscular Volume 92.6 79-99 fL Mean Corpuscular Hemoglobin 32.0 27.0-33.0 pg Mean Corpuscular Hemoglobin Concent 34.5 32.0-36.0 g/dL Red Cell Distribution Width 13.6 11.0-15.5 % Platelet Count 123 L 130-400 K/uL Mean Platelet Volume 12.1 H 7.5-10.5 fL Immature Granulocyte % (Auto) 1.1 H 0-1 % Neutrophils (%) (Auto) 59.3 40.0-77.0 % Lymphocytes (%) (Auto) 18.0 L 21.0-51.0 % Monocytes (%) (Auto) 7.1 3.0-13.0 % Eosinophils (%) (Auto) 14.0 H 0.0-8.0 % Basophils (%) (Auto) 0.5 0.0-5.0 % Neutrophils # (Auto) 6.4 1.8-7.7 K/uL Lymphocytes # (Auto) 2.0 1.0-4.8 K/uL Monocytes # (Auto) 0.8 0.1-1.0 K/uL Eosinophils # (Auto) 1.51 H 0.00-0.70 K/uL Basophils # (Auto) 0.05 0.00-0.20 K/uL Absolute Immature Granulocyte (auto 0.12 0-1 K/uL Nucleated Red Blood Cells 0.0 0.0-0.19 % Sodium Level 142 136-145 mmol/L Potassium Level 4.1 3.5-5.1 mmol/L Chloride Level 106 101-111 mmol/L Carbon Dioxide Level 29 21-32 mmol/L Blood Urea Nitrogen 13 7-18 mg/dL Creatinine 0.8 0.5-1.3 mg/dL Glomerular Filtration Rate Calc 96 >90 mL/min Random Glucose 92 70-105 mg/dL Total Calcium 8.6 8.5-10.1 mg/dL Magnesium Level 1.70 L 1.80-2.40 mg/dL Total Bilirubin 0.3 0.2-1.0 mg/dL Aspartate Amino Transf (AST/SGOT) 22 10-37 U/L Alanine Aminotransferase (ALT/SGPT) 17 12-78 U/L Alkaline Phosphatase 93 50-136 U/L Total Protein 6.4 6.0-8.3 g/dL Albumin 3.1 L 3.5-5.0 g/dL Blood Gas Specimen Type Venous Arterial Blood Oxygen Saturation 45.8 L 94.0-98.0 % Venous Blood pH 7.332 7.320-7.430 Venous Blood pCO2 at Patient Temp 49 38-54 Venous Blood pO2 at Patient Temp 27.1 23.0-48.0 mmHg Venous Blood HCO3 25.3 22.0-29.0 Venous Blood Base Excess -1.2 -2.0-3.0 Blood Gas Temperature 37.0 35.5-37.0 CELSIUS Blood Gas Vent Mode RA ROOM AIR FiO2 21.0 % Blood Gas Specimen Comment RARM,RODERICK Current Medications Medications (Trade) Dose Ordered Sig/Carroll Route PRN Reason Start Time Stop Time Status Last Admin Dose Admin Acetaminophen (TYLenol 325MG TAB) 650 mg Q6H PRN PO MILD PAIN (1-3) 06/30/25 13:00 07/30/25 12:59 06/30/25 14:47 650 MG Atorvastatin Calcium (LIPItor 40MG) 40 mg HS PO 07/01/25 21:00 07/31/25 20:59 07/03/25 20:11 40 MG Carvedilol (Coreg 6.25MG) 6.25 mg BID PO 07/01/25 09:00 07/01/25 09:05 DC Ceftriaxone Sodium (ROCEphine 1G INJ) 1 gm Q12H IVPB 06/30/25 13:00 06/30/25 16:31 DC 06/30/25 13:45 1 GM Dextrose (D50w) 50 ml AD PRN IV HYPOGLYCEMIA PROTOCOL 06/30/25 14:00 07/30/25 13:59 Glucagon (Glucagon 1mg Kit) 1 mg AD PRN IM HYPOGLYCEMIA PROTOCOL 06/30/25 14:00 07/30/25 13:59 Hydralazine HCl (APRESOLine 20MG INJ) 5 mg Q6H PRN IV ADMINISTER FOR SBP > 160 07/01/25 20:30 07/31/25 20:29 Insulin Human Regular (humuLIN R 100 UNIT/ML 3ML) INSULIN SLIDING SCAL... ACHS SQ 06/30/25 16:30 07/30/25 16:29 07/01/25 16:22 2 UNIT Lactobacillus Rhamnosus ([facility] [employer]) 1 each BID PO 07/01/25 13:00 07/31/25 12:59 07/04/25 08:14 1 EACH Losartan Potassium (CozAAR 25MG TAB) 25 mg DAILY PO 07/02/25 09:00 07/01/25 09:05 DC Magnesium Sulfate 50 ml @ 0 mls/hr PROTOCOL IV 07/02/25 14:30 07/02/25 14:13 DC Magnesium Sulfate 50 ml @ 0 mls/hr PROTOCOL PRN IV LOW MG 07/01/25 18:00 07/31/25 17:59 07/02/25 16:39 25 MLS/HR Memantine (NAmenDA 5 MG TAB) 5 mg BID PO 07/01/25 09:00 07/31/25 08:59 07/04/25 08:14 5 MG Metronidazole/ Sodium Chloride 100 ml @ 100 mls/hr Q8H IVPB 06/30/25 22:30 06/30/25 16:31 DC Metronidazole/ Sodium Chloride 100 ml @ 100 mls/hr TID IVPB 06/30/25 14:00 06/30/25 14:02 DC 06/30/25 13:45 100 MLS/HR Morphine Sulfate (morPHINE 4MG SYG) 4 mg ONCE STAT IVP 06/30/25 08:47 06/30/25 08:49 DC 06/30/25 09:02 4 MG Ondansetron HCl (zoFRAN 4MG INJ) 4 mg ONCE STAT IVP 06/30/25 08:47 06/30/25 08:49 DC 06/30/25 09:02 4 MG Ondansetron HCl (zoFRAN 4MG INJ) 4 mg Q6H PRN IVP NAUSEA/VOMITING 06/30/25 13:00 07/30/25 12:59 Pantoprazole Sodium (PROTonix 40MG INJ) 40 mg Q24H IVP 06/30/25 13:00 07/30/25 12:59 07/04/25 12:28 40 MG Piperacillin Sod/ Tazobactam Sod (Zosyn 3.375gm+NS 50ml) 3.375 gm BID IVPB 07/01/25 21:00 07/10/25 17:59 07/04/25 08:14 3.375 GM Piperacillin Sod/ Tazobactam Sod (Zosyn 3.375gm+NS 50ml) 3.375 gm Q8H IVPB 06/30/25 18:00 07/01/25 09:32 DC 07/01/25 09:21 3.375 GM Potassium Chloride 100 ml @ 100 mls/hr AD PRN IV POTASSIUM PROTOCOL 07/01/25 18:00 07/31/25 17:59 07/02/25 05:45 100 MLS/HR Potassium Chloride (K-Dur/Klor-Con 20meq) 20 meq AD PRN PO POTASSIUM PROTOCOL 07/01/25 18:00 07/31/25 17:59 07/03/25 20:10 20 MEQ Potassium Chloride (KCl 10% Elixir 20meq/15ml) 20 meq AD PRN PO POTASSIUM PROTOCOL 07/01/25 18:00 07/31/25 17:59 Ranolazine (Ranexa) 1,000 mg Q12H9 PO 07/01/25 09:00 07/31/25 08:59 07/04/25 08:14 1,000 MG Sertraline HCl (ZOloft 50 mg tab) 25 mg DAILY PO 07/02/25 09:00 08/01/25 08:59 07/04/25 08:14 25 MG Sodium Bicarbonate (Sodium Bicarbonate) 650 mg QID PO 07/02/25 17:00 08/01/25 16:59 07/04/25 12:29 650 MG Sodium Bicarbonate (Sodium Bicarbonate) 650 mg TID PO 07/01/25 21:00 07/02/25 14:04 DC 07/01/25 20:47 650 MG Sodium Chloride 1,000 ml @ 100 mls/hr Q10H IV 06/30/25 13:00 07/03/25 09:03 DC 07/02/25 22:14 100 MLS/HR Sodium Chloride (NS 50ml) 50 ml AD IV 06/30/25 18:00 07/01/25 08:50 DC Spironolactone (Aldactone 25mg) 25 mg DAILY PO 07/01/25 09:00 07/01/25 09:05 DC Tamsulosin HCl (FloMAX) 0.4 mg DAILY PO 07/01/25 09:00 07/31/25 08:59 07/04/25 08:14 0.4 MG Tamsulosin HCl (FloMAX) 0.4 mg HS PO 07/01/25 21:00 07/01/25 09:06 DC Thiamine HCl (Vitamin B-1) 100 mg Q24H IVP 06/30/25 14:30 07/30/25 14:29 07/03/25 14:57 100 MG Vitamin B Complex/ Vit C/Folic Acid (Nephrovite Tablet) 1 cap DAILY PO 07/01/25 09:00 07/31/25 08:59 07/04/25 08:14 1 CAP Diagnostics / Radiology: [COPY/PASTE HERE IF NO REPORTS PLEASE DELETE SECTION] Assessment: Gastritis N/V Diarrhea CAD DM Plan: Continue GI prophylaxis Advance diet as tolerated Avoid NSAIDs Antireflux measures Monitor H&H and transfuse as needed Call with questions, concerns or change in clinical status Patient to follow-up at clinic post discharge Thank you for this consult ANA ALEJANDREP Jul 04, 2025 12:57
[2025-07-04] MEDS ORDERED: PANT40TA54 PO (13:51)
[2025-07-04] MEDS ORDERED: SODI650T PO (13:51)
[2025-07-04] MEDS ORDERED: LACT1CAP79 PO (13:51)
--- NOTE | 2025-07-04 13:59 | DS ---
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 [employer] in one week. GI in2 to 3 weeks for results of biopsy] PROCEDURES:[Colonoscopy and EGD 07/02/2025] IMAGING: report attached to summary MICROBIOLOGY: report attached to summary ACTIVITY:[Independent] HOME MEDICATIONS: see med rec NEW MEDICATIONS:[Tamsulosin, folic acid with vitamin-B complex, Culturelle, pantoprazole, sodium bicarb] EMERGENCY INSTRUCTIONS: The patient was instructed to present to the nearest Emergency departmentr or call 911 once their symptoms will return or worsen Wincher(s): Patient is 69 years old male with a past medical history of Coronary Artery Disease, bypass grafting in 2013, Myocardial infarction 2019 s/p PCI, hyperlipidemia, diabetes, obstructive sleep apnea, who came to ER for evaluation of nausea, vomiting and multiple episodes of nonbloody diarrhea for five days prior admission. During hospitalization urine culture and blood culture was sent to the lab which came back positive for Citrobacter koseri and E coli. ID was consulted patient was placed at [facility] on Zosyn. Afterwards patient be discharged on cephalexin 500 mg p.o. t.i.d. x7 days as prescribed by ID. Patient also has a history of kidney injury where he was following Dr. Ford outpatient. Patient receive bolus of the normal saline and the kidneys have come back to normal state compared to the admission. Due to persistent nausea vomiting with diarrhea CT abdomen/pelvis was performed and showed enterocolitis patient underwent colonoscopy and EGD which showed gastric polyps. Biopsy taken. Internal hemorrhoids and gastritis. GI was consulted and today patient was cleared by GI to be discharged home. Patient denies any shortness of breath, chest pain, nausea, vomiting or any other discomfort. Patient denies any diarrhea. Patient was cleared to be discharged home follow up outpatient with the PCP in 2 to 3 days. 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 Procedure(s): REVIEW OF SYSTEMS CONSTITUTIONAL: Denies fevers, chills, or night sweats. No unintentional weight loss reported. NEUROLOGICAL: Denies headache, amaurosis fugax, motor weakness, sensory deficit, vertigo/spinning sensation, gait abnormalities, or tremors. ENT: No hearing loss, otalgia, otorrhea, rhinitis, rhinorrhea, hoarseness, or sore throat. CARDIOVASCULAR: Denies any exertional angina, dyspnea on exertion, orthopnea, paroxysmal nocturnal dyspnea, palpitations, life-threatening arrhythmias, claudication. PULMONARY: Denies any shortness of breath, cough, phlegm/sputum, hemoptysis, pleuritic chest pain. SLEEP: Denies morning headaches, daytime somnolence or napping. Denies difficulty falling asleep, staying asleep, waking from sleep. Denies knowledge of snoring. GASTROINTESTINAL: Denies any nausea, vomiting or diarrhea GENITOURINARY: Denies frequency, urgency, nocturia, hematuria or incontinence (Storage/Irritative symptoms.) Low urinary stream, straining to void, urinary intermittency or hesitancy, splitting of the voiding stream, terminal dribbling. ENDOCRINOLOGIC: Denies polyuria, polydipsia, polyphagia or heat/cold intolerances. HEMATOLOGIC: Denies thrombophilia/previous clots, or coagulopathy/bleeding disorders. ONCOLOGIC: Denies personal history of malignancy. DERMATOLOGIC: Denies rashes or pruritus. PSYCHIATRIC: Denies any suicidal or homicidal ideation. Denies hallucinations. PHYSICAL EXAM GENERAL APPEARANCE: The patient is awake, alert, and oriented, in no acute cardiopulmonary distress. NEUROLOGICAL: Cranial nerves II-XII grossly intact. Motor is 5/5 in bilateral upper and lower extremities proximal to distal. No sensory deficits. HEENT: Face is symmetric. Pupils are equal and reactive. Extraocular movements are intact. NECK: Supple. No JVD. No thyromegaly. No submental, submandibular, pre-/posta uricular, occipital or supraclavicular lymphadenopathy. CHEST: Normal chest expansion. No Telemetry. LUNGS: Absence of any rales, rhonchi or any wheezing. CARDIOVASCULAR: Regular. S1 and S2 normal. No appreciable rubs, murmurs or gallops. ABDOMEN: Soft, nontender, and nondistended. There is no rebound, voluntary guarding, or rigidity. : Deferred. No Andrews. EXTREMITIES: Non-edematous and not cyanotic. No clubbing. Good capillary refill. SKIN: No skin breakdown. 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% as per 2D echo Acute kidney injury, POA Hypovolemic hyponatremia, POA Orthostasis, POA Underlying history of hypertension, POA Hyperlipidemia, POA History of coronary artery disease with prior history of CABG and PCI, POA Prior history of CO in 2019, POA History of CHF, POA Obstructive sleep apnea, POA Rule out UTI, POA Home Medications: Reported Medications Tamsulosin HCl (Flomax) 0.4 Mg Cap.er.24h, 1 CAP PO HS for 30 Days, #30 CAP 0 Refills 06/30/25 Ranolazine (Ranolazine ER) 1,000 Mg Tab.er.12h, 1 TAB PO BID for 30 Days, #60 TAB 0 Refills 06/30/25 Atorvastatin Calcium (Atorvastatin Calcium) 40 Mg Tablet, 1 TAB PO HS for 30 Days, #30 TAB 0 Refills 06/30/25 Memantine HCl (Memantine HCl) 5 Mg Tablet, 1 TAB PO BID for 30 Days, #60 TAB 0 Refills 06/30/25 Valsartan (Valsartan) 40 Mg Tablet, 1 TAB PO DAILY for 30 Days, #30 TAB 0 Refills 06/30/25 Spironolactone (Spironolactone) 25 Mg Tablet, 1 TAB PO DAILY for 30 Days, #30 TAB 0 Refills 06/30/25 Carvedilol (Carvedilol) 6.25 Mg Tablet, 1 TAB PO BID for 30 Days, #60 TAB 0 Refills 06/30/25 Sertraline HCl (Sertraline HCl) 25 Mg Tablet, 1 TAB PO DAILY for 30 Days, #30 TAB 0 Refills 06/30/25 Discontinued Reported Medications Ranolazine (Ranexa) 1,000 Mg Tab.er.12h, 1000 MG PO BID, TAB 03/01/21 Semaglutide (Ozempic) 1 Mg/0.75 Ml Pen.injctr, 0.25 MG SQ QWEEK TAKE ON Monday03/01/21 Sacubitril/Valsartan (Entresto 24 mg-26 mg Tablet) 1 Each Tablet, 1 EACH PO BID, TAB 7/12/21 Prasugrel HCl (Prasugrel HCl) 10 Mg Tablet, 10 MG PO AM, TAB 03/01/21 Isosorbide Mononitrate (Isosorbide Mononitrate ER) 60 Mg Tab.er.24h, 60 MG PO PM, TAB take 1/ tab 03/01/21 Isosorbide Mononitrate (Isosorbide Mononitrate ER) 60 Mg Tab.er.24h, 60 MG PO AM, TAB 04/20/19 Atorvastatin Calcium (Atorvastatin Calcium) 20 Mg Tablet, 20 MG PO HS, TAB 04/20/19 Aspirin (Aspirin) 81 Mg Tab.chew, 81 MG PO DAILY, TAB.CHEW 04/20/19 Carvedilol (Carvedilol) 12.5 Mg Tablet, 3.125 MG PO BID, TAB 04/20/19 Furosemide (Furosemide) 20 Mg Tablet, 20 MG PO DAILY, TAB 04/20/19 Time spent arranging discharge: 31-60 minutes ATTESTATION BY PHYSICIAN I have seen and examined the patient. I reviewed the documentation, medical decision making, and treatment plan as noted by the mid-level provider above. I agree with the findings and plan of care. BELKIS MORGAN MD, [facility] Jul 04, 2025 13:58
--- NOTE | 2025-07-04 14:30 | NUR ---
DISCHARGE AT BEDSIDE. DC'D IV. HANDED PRESCRIPTIONS WRITTEN BY SIMONA NICHOLS AND DR. LEON. PT AWARE OF NEW PRESCRIPTIONS SENT TO PHARMACY. PT AWARE TO FOLLOW UP WITH DR. ERWIN. REPORTS APPOINTMENT FOR 07/09/25 AT 1100. AWARE OF APPOINTMENT WITH DR. DEUTSCH ON07/31/25 AT 1615 AND FOLLOW UP WITH DR. JEFF ON 07/07/25 AT 1330. INFORMATION MIL.
--- NOTE | 2025-07-04 22:49 | PN ---
FOLLOWUP PROGRESS NOTE SUBJECTIVE: A 69-year-old male with a history of hypertension, coronary artery disease, patient initially admitted with acute renal failure. The patient with significant volume depletion. The patient with nausea, vomiting, and diarrhea at home. The patient did have extensive GI workup in the hospital. The patient's renal function much improved. The patient is being seen as a followup visit for all of the above. REVIEW OF SYSTEMS: GENERAL: He is feeling weak and tired. HEENT: No change in vision. No change in hearing. CARDIOVASCULAR: There are no current chest pains or palpitations. PULMONARY: Denies shortness of breath. GASTROINTESTINAL: He is tolerating a diet. MUSCULOSKELETAL: Complains of weakness. PHYSICAL EXAMINATION: VITAL SIGNS: Blood pressure is 127/76, pulse in the 60s. He is afebrile. GENERAL: Chronically old, elderly male, lying in bed on the medical floor. HEENT: Head is atraumatic. Pupils are equal, round, reactive to light. Oropharynx is without exudate. Nares clear. NECK: There is no JVP. There is no thyromegaly, no mass. CARDIOVASCULAR: Regular. There is no S3 or S4 gallop. LUNGS: Coarse with equal thoracic movement. ABDOMEN: Soft, nondistended, and nontender. EXTREMITIES: Reveal no clubbing, no cyanosis. NEUROLOGICAL: He is awake, alert. LABORATORY DATA: Sodium 132, potassium 3.6, BUN 21, creatinine 0.9. IMPRESSION: Acute renal failure. Volume depletion. Hypertension. Known coronary artery disease. Prostatitis. PLAN: The patient's renal function is much improved. The patient can safely be discharged from a renal standpoint. Potassium has been aggressively repleted. The patient is completing his antibiotics for the prostatitis. We will follow up closely. TID: [id number] RECEIPT: [id number]
== END 2025-07-04 14:41 | disposition home or self-care (01) | DRG 371 ==
LOC: EDH 08:18 → EDHIP 12:34 → 3BH 21:09
PROVIDERS: ADMIT Internal Medicine; ATTEND Internal Medicine
PROC: 0DBL8ZX Excision of Transverse Colon, Via Natural or Artificial Opening Endoscopic, Diagnostic (ICD-10-PCS; principal; 2025-07-02)
PROC: 0DB68ZX Excision of Stomach, Via Natural or Artificial Opening Endoscopic, Diagnostic (ICD-10-PCS; 2025-07-02)
DX: A04.4 Other intestinal Escherichia coli infections (principal); N17.0 Acute kidney failure with tubular necrosis; R62.7 Adult failure to thrive; I50.40 Unspecified combined systolic (congestive) and diastolic (congestive) heart failure; E87.1 Hypo-osmolality and hyponatremia; E11.22 Type 2 diabetes mellitus with diabetic chronic kidney disease; D72.829 Elevated white blood cell count, unspecified; N39.0 Urinary tract infection, site not specified; N41.9 Inflammatory disease of prostate, unspecified; E66.9 Obesity, unspecified; N18.9 Chronic kidney disease, unspecified; E86.0 Dehydration; K29.70 Gastritis, unspecified, without bleeding; K21.9 Gastro-esophageal reflux disease without esophagitis; E78.00 Pure hypercholesterolemia, unspecified; E86.1 Hypovolemia; E87.6 Hypokalemia; G47.33 Obstructive sleep apnea (adult) (pediatric); I25.10 Atherosclerotic heart disease of native coronary artery without angina pectoris; K31.7 Polyp of stomach and duodenum; K64.0 First degree hemorrhoids; I25.2 Old myocardial infarction; Z83.3 Family history of diabetes mellitus; Z95.1 Presence of aortocoronary bypass graft; Z68.34 Body mass index [BMI] 34.0-34.9, adult; Z95.5 Presence of coronary angioplasty implant and graft
CPT/HCPCS: 36415; 36600; 43239; 45380; 71045; 74176; 76770; 80048; 80053; 80076; 81001; 82140; 82550; 82570; 82803; 82948; 83036; 83605; 83615; 83690; 83735; 83880; 84132; 84145; 84300; 84443; 84484; 85025; 85027; 85610; 85651; 85730; 86140; 87040; 87046; 87086; 87177; 87186; 87324; 87507; 93005; 93306; 93356; 96374; 96375; 99285; A4606; G0378; J0696; J1815; J2270; J2405; J2470; J2543; J2704; J3411; J3475; J3480; J3490; J7030; J7040; A4215; A4222; A4223; A4620